=== PATIENT | male | born 1955 | race Caucasian/White ===

== ENCOUNTER 2019-08-25 07:10 | Outpatient (RCR) | payer OTHER, SELFPAY ==
--- NOTE | 2019-07-11 08:27 | WPDWOUNDNOTE ---
Wound Care Note Date/Time: 07/11/19 08:27 History: 1 week s/p Omnigraft application by Dr. Dueñas in the [facility] wound clinic on the medial aspect of the right hallux DFU. Wound history: I&D Right DFU and graft application (DOS: 06/01/19) Wound approximation: No Wound width: 0.4cm Wound length: 0.7cm Wound depth: 0.3cm Drainage: Scant serousanguinous fluid. Mild pseudomonas Surrounding tissue appearance: No redness/warmth. Mild Swelling. Tunneling: n/a Percentage granulation tissue: 100% red/pink wound bed. Treatment/Procedures: Dressing change/TCC Dressings: Regranex, Endoform, Vancomycin Powder and repeat TCC Assessment and Plan Assessment and plan (1) Ulcer of foot due to diabetes: Code(s): E11.621 - Type 2 diabetes mellitus with foot ulcer; L97.509 - Non-pressure chronic ulcer of other part of unspecified foot with unspecified severity Status: Acute Assessment and Plan: 5 weeks, 5 days s/p I&D and graft application of right DFU over the medial hallux. Ulcer today with improvement in dimensions 1 week s/p omnigraft application in the wound clinic by Dr. Dueñas. Ulcer today measures 0.4x0.7x0.3cm, 100% red/pink wound bed. Surrounding tissue with green drainage consistent with pseudomonas. Mild odor consistent with pseudomonas. No purulence. Omnigraft silicone layer removed today, tolerated well. Recommended repeat application of Regranex, Endoform and Vancomycin powder. Repeat TCC. Plan for 1 more week of TCC and possible transition to daily dressing changes at that time. Follow up in 1 week. Fracture/Casting/Strapping Pre Procedure Consent was obtained, Procedures/risks were explained, Questions were answered, Correct patient identified and Correct side and site confirmed Episode of Care Return Visit Casting Cast: Total Contact Leg Cast Modification and Status: Diabetic Application Exam of Affected Area: Color: Normal, Temp: Normal, Pulse: Normal, Blanching: Normal, Capillary Refill: Normal and Sensory Exam: Abnormal (neuropathic ) Swelling: Yes (mild ) and Tenderness: Yes (mild ) Skin Apperance: Open (Wound measures 0.4x0.7x0.3cm, 100% red/pink wound bed. ) Care: Alcohol Wipes Patient Tolerated Procedure Well: Yes Post Procedure Patient tolerated the procedure well?: Tolerated procedure well Comment: Follow up in 1 week.
--- NOTE | 2019-07-18 09:29 | WPDWOUNDNOTE ---
Wound Care Note Date/Time: 07/18/19 09:29 History: 2 weeks s/p omnigraft application to the medial aspect of the right hallux DFU. 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 Most recent surgical intervention on 06/01/19 (I&D right DFU/graft application) Wound approximation: No Wound width: 0.2 Wound length: 0.4 Wound depth: 0.4 Drainage: scant serousanguinous Surrounding tissue appearance: No erythema Tunneling: None Percentage granulation tissue: 100% red/pink wound bed Dressings: Transition out of TCC. See notes Assessment and Plan Assessment and plan (1) Ulcer of foot due to diabetes: Code(s): E11.621 - Type 2 diabetes mellitus with foot ulcer; L97.509 - Non-pressure chronic ulcer of other part of unspecified foot with unspecified severity Status: Acute Assessment and Plan: 6 weeks, 5 days s/p I&D and graft application of right DFU over the medial hallux. 2 weeks s/p omnigraft application by Dr. Dueñas in the [facility] wound clinic. Ulcer today with continued improvement in dimensions. Ulcer measures 0.4x0.2x0.4cm, 100% red/pink wound bed. Surrounding tissue without redness/warmth/swelling. Marked improvement in green drainage consistent with pseudomonas s/p application of vanc powder last week. No odor noted. Patient would like to trial OUT of TCC and into fracture boot. Discussed risks of possible worsening of dimensions and need for close monitoring and daily dressing changes, verbalized understanding. Recommended application of Regranex, Endoform and Mepilex foam daily. If worsening of dimensions per patient assessment, will arrange for follow up in 1 week for repeat TCC. If dimensions/appearance stable, continue daily dressing changes, fracture boot and follow up in 2 weeks. . Discussed signs/symptoms of infection to report to ED immediately. Discussed importance of proper pressure offloading, nutrition and diabetic medication compliance. Review of Systems Const Reports no additional constitutional complaints Eyes Denies change in vision ENT Denies tongue swelling Card Denies chest pain with activity Resp Denies cough GI Denies abdominal pain Musc Reports as per HPI Neuro Reports numbness Sean/Lymph Denies easy bleeding Exam Const Constitutional General: cooperative and well developed HENMT Head: normal to inspection Eyes Sclera: sclerae normal Resp Effort & Inspection: normal respiratory effort and no audible wheezes Cardio Rate: Yes regular rate Diabetic Foot Exam Date of last foot exam: 07/04/19 Visual inspection of feet performed: Yes Inspection: Yes foot deformity, Yes nail disorder and Yes ulceration ( Plantar right 1st metatarsal) Peripheral pulse exam performed: Yes Pulses: L dorsalis pedis pulse: normal, R dorsalis pedis pulse: normal, L posterior tibial pulse: diminished and R posterior tibial pulse: diminished Sensory exam performed: Yes Monofilament Exam: L 1st metatarsals: absent, L 3rd metatarsals: absent, L 5th metatarsals: absent, L great toe: absent, L 3rd toe: absent, L 5th toe: absent, L medial mid foot: decreased, L lateral mid-foot: decreased, L mid-heel: decreased, L mid-dorsum foot: decreased, R 1st metatarsals: absent, R 3rd metatarsals: absent, R 5th metatarsals: absent, R great toe: absent, R 3rd toe: absent, R 5th toe: absent, R medial mid foot: decreased, R lateral mid-foot: decreased, R mid-heel: decreased and R mid-dorsum foot: decreased Monofilament foot exam results: Left foot: abnormal and Right foot: abnormal Pinprick: L great toe: abnormal and R great toe: abnormal Diabetic foot care education: provided
--- NOTE | 2019-08-01 08:23 | WPDWOUNDNOTE ---
Wound Care Note Date/Time: 08/01/19 08:23 4 weeks s/p omnigraft application to the medial aspect of the right hallux DFU. Chronic right hallux DFU for which the patient has undergone multiple surgical debridements, grafting and total contact casting. Most recent surgical intervention on 06/01/19 (I&D right DFU/graft application) Wound approximation: Yes (completely closed ) Dressings: Continue Mepilex Foam Daily Continue Fracture boot Assessment and Plan Assessment and plan (1) Ulcer of foot due to diabetes: Qualifiers: Diabetic foot ulcer location: toe Diabetes mellitus type: type 2 Laterality: right Non-pressure ulcer stage: limited to breakdown of skin Qualified Code(s): E11.621 - Type 2 diabetes mellitus with foot ulcer; L97.511 - Non-pressure chronic ulcer of other part of right foot limited to breakdown of skin Code(s): E11.621 - Type 2 diabetes mellitus with foot ulcer; L97.509 - Non-pressure chronic ulcer of other part of unspecified foot with unspecified severity Status: Acute Assessment and Plan: 8 weeks, 5 days s/p I&D and graft application of right DFU over the medial hallux. 4 weeks s/p omnigraft application by Dr. Dueñas in the [facility] wound clinic. Ulcer now with complete closure with delicate tissue. Surrounding tissue without redness/warmth/swelling. Recommended continuation of Mepilex foam daily and cover dry. Continue fracture boot for additional pressure offloading. Plan to transition to custom orthotics/depth shoes in 2 weeks. Patient has had these previously fabricated. Discussed signs/symptoms of infection to report to ED immediately. Discussed importance of proper pressure offloading, nutrition and diabetic medication compliance. Exam Const Constitutional General: cooperative and well developed [facility] Head: normal to inspection Eyes Sclera: sclerae normal Resp Effort & Inspection: normal respiratory effort and no audible wheezes Cardio Rate: Yes regular rate Diabetic Foot Exam Date of last foot exam: 07/04/19 Visual inspection of feet performed: Yes Inspection: Yes foot deformity Deformity: pes planus and Yes ulceration (Plantar right 1st metatarsal- completely closed ) Peripheral pulse exam performed: Yes Pulses: L dorsalis pedis pulse: normal, R dorsalis pedis pulse: normal, L posterior tibial pulse: diminished and R posterior tibial pulse: diminished Sensory exam performed: Yes Monofilament Exam: L 1st metatarsals: absent, L 3rd metatarsals: absent, L 5th metatarsals: absent, L great toe: absent, L 3rd toe: absent, L 5th toe: absent, L medial mid foot: decreased, L lateral mid-foot: decreased, L mid-heel: decreased, L mid-dorsum foot: decreased, R 1st metatarsals: absent, R 3rd metatarsals: absent, R 5th metatarsals: absent, R great toe: absent, R 3rd toe: absent, R 5th toe: absent, R medial mid foot: decreased, R lateral mid-foot: decreased, R mid-heel: decreased and R mid-dorsum foot: decreased Monofilament foot exam results: Left foot: abnormal and Right foot: abnormal Pinprick: L great toe: abnormal and R great toe: abnormal Diabetic foot care education: provided Review of Systems Const Reports no additional constitutional complaints Eyes Denies change in vision ENT Denies tongue swelling Card Denies chest pain with activity Resp Denies cough GI Denies abdominal pain Musc Reports as per HPI Neuro Reports numbness Sean/Lymph Denies easy bleeding
--- NOTE | 2019-08-11 09:49 | PCWOUND ---
Patient called to cancel appointment for today. states had his Lynn look at the area and states it looks good. There is no redness, she notes a crusty scab and callus but no open wound. Patient will keep his scheduled appointment on Wednesday08/18/19.
--- NOTE | 2019-08-15 09:32 | P.PNWOUND_ITS ---
Wound Care Note Date/Time: 08/15/19 09:32 Chronic right hallux DFU for which the patient has undergone multiple surgical debridements, grafting and total contact casting. Most recent surgical intervention on 06/01/19 (I&D right DFU/graft application) Wound approximation: Yes (completely closed -callus formation debrided today) Dressings: Continue Mepilex Foam Daily Continue Fracture boot Assessment and Plan Assessment and plan (1) Ulcer of foot due to diabetes: Qualifiers: Diabetic foot ulcer location: toe Diabetes mellitus type: type 2 Late rality: right Non-pressure ulcer stage: limited to breakdown of skin Qualified Code(s): E11.621 - Type 2 diabetes mellitus with foot ulcer; L97.511 - Non- pressure chronic ulcer of other part of right foot limited to breakdown of skin Code(s): E11.621 - Type 2 diabetes mellitus with foot ulcer; L97.509 - Non-pressure chronic ulcer of other part of unspecified foot with unspecified severity Status: Acute Assessment and Plan: [facility] wound clinic follow up. Ulcer on the medial aspect of the hallux with large amount of callus formation requiring debridement, underlying ulcer remains completely. Surrounding tissue without redness/warmth/swelling. Recommended continuation of Mepilex foam cover dry with gauze x2 days and then transition into custom orthotics/depth shoes. Discussed signs/symptoms of infection to report to ED immediately. Discussed importance of proper pressure offloading, nutrition and diabetic medication compliance. Follow up in approximately 2 weeks. Exam Const Constitutional General: cooperative and well developed [facility] Head: normal to inspection Eyes Sclera: sclerae normal Resp Effort & Inspection: normal respiratory effort and no audible wheezes Cardio Rate: Yes regular rate Extrem Other: See wound assessment. Diabetic Foot Exam Date of last foot exam: 08/15/19 Visual inspection of feet performed: Yes Inspection: Yes foot deformity and Yes ulceration (Plantar right 1st metatarsal- completely closed ) Peripheral pulse exam performed: Yes Pulses: L dorsalis pedis pulse: normal, R dorsalis pedis pulse: normal, L posterior tibial pulse: diminished and R posterior tibial pulse: diminished Sensory exam performed: Yes Monofilament Exam: L 1st metatarsals: absent, L 3rd metatarsals: absent, L 5th metatarsals: absent, L great toe: absent, L 3rd toe: absent, L 5th toe: absent, L medial mid foot: decreased, L lateral mid-foot: decreased, L mid-heel: decreased, L mid-dorsum foot: decreased, R 1st metatarsals: absent, R 3rd metatarsals: absent, R 5th metatarsals: absent, R great toe: absent, R 3rd toe: absent, R 5th toe: absent, R medial mid foot: decreased, R lateral mid-foot: decreased, R mid-heel: decreased and R mid-dorsum foot: decreased Monofilament foot exam results: Left foot: abnormal and Right foot: abnormal Pinprick: L great toe: abnormal and R great toe: abnormal Diabetic foot care education: provided Review of Systems Const Reports no additional constitutional complaints Eyes Denies change in vision ENT Denies tongue swelling Card Denies chest pain with activity Resp Denies cough GI Denies abdominal pain Musc Reports as per HPI Neuro Reports numbness Sean/Lymph Denies easy bleeding
--- NOTE | 2019-08-25 09:11 | WPDWOUNDNOTE ---
Wound Care Note Date/Time: 08/25/19 09:11 Chronic right hallux DFU for which the patient has undergone multiple surgical debridements, grafting and total contact casting. Most recent surgical intervention on 06/01/19 (I&D right DFU/graft application) Wound approximation: Yes (completely closed) Dressings: Continue Mepilex Foam Daily, Custom Orthotics/Depth Shoes Assessment and Plan Assessment and plan (1) Ulcer of foot due to diabetes: Qualifiers: Diabetic foot ulcer location: toe Diabetes mellitus type: type 2 Laterality: right Non-pressure ulcer stage: limited to breakdown of skin Qualified Code(s): E11.621 - Type 2 diabetes mellitus with foot ulcer; L97.511 - Non-pressure chronic ulcer of other part of right foot limited to breakdown of skin Code(s): E11.621 - Type 2 diabetes mellitus with foot ulcer; L97.509 - Non-pressure chronic ulcer of other part of unspecified foot with unspecified severity Status: Acute Assessment and Plan: [facility] wound clinic follow up. Ulcer on the medial aspect of the hallux remains closed. Surrounding tissue without redness/warmth/swelling. Recommended continuation of Mepilex foam and custom orthotics/depth shoes. Discussed signs/symptoms of infection to report to ED immediately. Discussed importance of proper pressure offloading, nutrition and diabetic medication compliance. Follow up in 1 month. Exam Const Constitutional General: cooperative and well developed HENMT Head: normal to inspection Eyes Sclera: sclerae normal Resp Effort & Inspection: normal respiratory effort and no audible wheezes Cardio Rate: Yes regular rate Extrem Other: See wound assessment. Diabetic Foot Exam Date of last foot exam: 08/25/19 Visual inspection of feet performed: Yes Inspection: Yes foot deformity and Yes ulceration (Plantar right 1st metatarsal- completely closed ) Peripheral pulse exam performed: Yes Pulses: L dorsalis pedis pulse: normal, R dorsalis pedis pulse: normal, L posterior tibial pulse: diminished and R posterior tibial pulse: diminished Sensory exam performed: Yes Monofilament Exam: L 1st metatarsals: absent, L 3rd metatarsals: absent, L 5th metatarsals: absent, L great toe: absent, L 3rd toe: absent, L 5th toe: absent, L medial mid foot: decreased, L lateral mid-foot: decreased, L mid-heel: decreased, L mid-dorsum foot: decreased, R 1st metatarsals: absent, R 3rd metatarsals: absent, R 5th metatarsals: absent, R great toe: absent, R 3rd toe: absent, R 5th toe: absent, R medial mid foot: decreased, R lateral mid-foot: decreased, R mid-heel: decreased and R mid-dorsum foot: decreased Monofilament foot exam results: Left foot: abnormal and Right foot: abnormal Pinprick: L great toe: abnormal and R great toe: abnormal Diabetic foot care education: provided Review of Systems Const Reports no additional constitutional complaints Eyes Denies change in vision ENT Denies tongue swelling Card Denies chest pain with activity Resp Denies cough GI Denies abdominal pain Musc Reports as per HPI Neuro Reports numbness Sean/Lymph Denies easy bleeding
== END 2019-10-02 23:59 | disposition home or self-care (01) ==
LOC: ANHWOC 07:10
PROVIDERS: Visit Provider Orthopaedic Surgery
DX: E11.621 Type 2 diabetes mellitus with foot ulcer (principal); L97.519 Non-pressure chronic ulcer of other part of right foot with unspecified severity
CPT/HCPCS: 11042; 15275; 29445; 92593; 99212; Q4105; G0463; J3370

== ENCOUNTER 2019-11-13 20:56 | Inpatient (IN) | payer OTHER, SELFPAY ==
--- NOTE | ~2019-11-13 | XR_ITS ---
EXAMINATION: XR chest 2V DATE: 11/13/2019 21:53 INDICATION: Possible sepsis TECHNIQUE: AP and lateral views of the chest are obtained. COMPARISON: 11/22/2014 FINDINGS: The lungs are free of acute opacities. There is no pleural effusion or pneumothorax. The ca rdiomediastinal silhouette is normal. There is moderate thoracic spondylosis. IMPRESSION: 1. No acute cardiopulmonary abnormality. Reviewed, dictated and finalized at location A.
--- NOTE | ~2019-11-13 | XR_ITS ---
EXAMINATION: XR foot RT min 3V DATE: 11/13/2019 23:40 INDICATION: Right foot wound and ulceration TECHNIQUE: Dorsoplantar, lateral, and 2 oblique views of the right foot were obtained. COMPARISON: 10/08/2018 FINDINGS: Soft tissue swelling is seen at the plantar aspect of the first metatarsophalangeal joint. There is sclerosis and joint space narrowing of the first metatarsophalangeal joint as well as some e rosions of the joint space as well as an apparent erosion at the plantar aspect of the first metatars al. No definite soft tissue gas is identified. Dorsal and plantar calcaneal enthesophytes are noted. The remaining osseous structures are unremarkable. IMPRESSION: 1. Plantar soft tissue ulceration near the first metatarsophalangeal joint with possible associated o steomyelitis. Reviewed, dictated and finalized at location A. IMPRESSION: 1. Plantar soft tissue ulceration near the first metatarsophalangeal joint with possible associated osteomyelitis.
--- NOTE | ~2019-11-13 | US_ITS ---
EXAMINATION: US renal BI EXAM DATE: 11/14/2019 10:45 INDICATION: Kidney failure. TECHNIQUE: Multiple grayscale and Doppler images of the kidneys were obtained (by a technologist who performed the scan) and subsequently reviewed. There is no prior study for comparison. FINDINGS: Right kidney: There is normal contour and echogenicity. It measures 13.2 x 5.4 x 6.7 centimeters. T here are no focal renal lesions identified. There is no hydronephrosis. Left kidney: There is normal contour and echogenicity. It measures 13.6 x 5.9 x 6.9 centimeters. Th ere are no focal renal lesions identified. There is no hydronephrosis. Bladder unremarkable. Bilateral ureteral jets confirmed. IMPRESSION: 1. Sonographically unremarkable kidneys. Reviewed, dictated and finalized at location A.
[2019-11-13 20:59] VITALS: BP 89/44; PULSE 127; RESP 18; TEMP 37.6; O2SAT 97
[2019-11-13 21:10] VITALS: BP 80/43; PULSE 122; RESP 18; O2SAT 98
--- NOTE | 2019-11-13 21:15 | ECG_ITS ---
Measurements Intervals [place] Rate: 121 P: 77 SD: 186 QRS: -42 QRSD: 101 T: 21 QT: 314 QTc: 447 Interpretive Statements SINUS TACHYCARDIA LEFT AXIS DEVIATION POOR R WAVE PROGRESSION, ANTERIOR LEADS ABNORMAL ECG Electronically Signed On 11-14-2019 7:06:04 CDT by Clement Kimbrough D.O.
[2019-11-13 21:37] LABS: Basophils Absolute Auto 0.1 K/mm3 (0.0-0.1); Basophils Percent Auto 0.5 % (0.2-1.2); Eosinophils Percent Auto 0.3 % (0-4.4); Hematocrit 39.7 % (42.0-52.0); Hemoglobin 12.5 g/dL (14.0-18.0); Immature Granulocyte Absolute 0.09 K/mm3 (0.00-0.031); Immature Granulocyte Percent A 0.7 % (0-0.5); Lymphocytes Absolute Auto 1.05 K/mm3 (0.9-3.2); Lymphocytes Percent Auto 7.9 % (18.3-44.2); Mean Corpuscular HGB Conc 31.5 g/dl (32-36); Mean Corpuscular Hemoglobin 31.6 pg (26-34); Mean Corpuscular Volume 100.5 fl (80-100); Mean Platelet Volume 12.1 fl (7.4-10.4); Monocytes Absolute Auto 0.7 K/mm3 (0.1-0.6); Monocytes Percent Auto 4.9 % (2.6-8.5); Neutrophils Absolute Auto 11.4 K/mm3 (1.3-6.7); Neutrophils Percent Auto 85.7 % (45.5-73.1); Platelet Count Result 211 k/mm3 (150-375); Red Blood Count 3.95 M/mm3 (4.6-6.20); Red Cell Distribution Width 12.1 % (11.5-14.5); White Blood Count 13.3 K/mm3 (4.5-10.0)
[2019-11-13 21:46] LABS: INR 1.1; Prothrombin Time 13.4 Seconds (11.1-14.7)
[2019-11-13 21:47] LABS: Partial Thromboplastin Time 28.4 SECONDS (22.3-36.8)
--- NOTE | 2019-11-13 21:48 | ED.WOUNDLAC ---
HPI - Wound/Laceration General Chief Complaint: Wound/Laceration Stated Complaint: R toe wound Time Seen by Provider: 11/13/19 21:38 Source: patient Mode of arrival: ambulatory Limitations: no limitations History of Present Illness HPI narrative: Pt is a 64 y/o male who has a H/o DM and peripheral neuropathy that presents to the ED with c/o a wound to his rt foot that has worsened in the last week. Pt states that he has been getting treatment for his foot wound for a year by Dr. Dueñas. Pt states he has had multiple cleanings and skin grafts. Pt saw Dr. Dueñas on Wednesday and had his wound debrided. Pt reports fever, chills, sweats, and dizziness that started last night. Per spouse, she was changing the pt's dressing when she noticed drainage from the wound and surrounding erythema. Pt has been wearing a boot for the last week. Onset (ago): week(s) (1) Extremity Location: Right: foot Context: other (foot ulcer) Associated symptoms: fever and other (sweats, chills) Related Data Home Medications Medication Instructions Recorded Confirmed clopidogrel 75 mg PO DAILY 06/23/19 11/14/19 finasteride 5 mg PO DAILY 06/23/19 11/14/19 gabapentin 300 mg PO BID 06/23/19 11/14/19 lisinopril 40 mg PO DAILY 06/23/19 11/14/19 metformin 500 mg PO BID 06/23/19 11/14/19 rosuvastatin [Crestor] 5 mg PO DAILY 06/23/19 11/14/19 tamsulosin 0.4 mg PO DAILY 06/23/19 11/14/19 Humulin R U-500 (Conc) Insulin See Rx Instructions .ROUTE .COMPLEX 11/13/19 11/14/19 [id number] 1 ea PO BID 11/14/19 11/14/19 [Huy (with collagen)] fenofibrate 54 mg PO HS 11/14/19 11/14/19 Allergies Allergy/AdvReac Type Severity Reaction Status Date / Time No Known Allergies Allergy Verified 11/13/19 21:12 Review of Systems Review of Systems: All systems reviewed & are unremarkable except as noted in HPI and below Constitutional: Constitutional: Reports chills, Reports fever(s) and Reports other (sweats) Integumentary/Breasts: Skin/Breast: Reports skin ulcer (to rt foot) Neurologic: Reports dizziness PMFSH Past Medical History Medical History CAD (coronary artery disease) CVA (cerebral vascular accident) Degenerative joint disease of knee Diabetes mellitus with neurologic complication, with long-term current use of insulin High cholesterol HTN (hypertension) Left knee pain Sleep apnea TIA (transient ischemic attack) Ulcer of foot due to diabetes Vision abnormalities Weakness generalized Surgical History Surgical History H/O heart artery stent History of cardiac catheterization History of incision and drainage thigh abscess Status post left foot surgery Family History Family History Father Lung cancer Social History Social History Smoking packs per day: 2 Smoking cigarettes per day: 40.0 Years smoked: 20 Smoking pack-years: 40.00 Smoking status: Former smoker Second hand tobacco smoke exposure: No Smoking end date: 09/10/99 Alcohol intake: former Drinks per week: 1 Substance use: never Gender identity (if verbalized by the patient): Male Spiritual care concerns: No Agree to blood products: Yes Comments Pt's PCP is Dr. Lomeli and his orthopedic surgeon is Dr. Dueñas. Exam Narrative: Exam Narrative: GENERAL: Well-appearing, morbidly obese, and in no acute distress. HEAD: Normocephalic, atraumatic. ENT: Mucous membranes moist. CHEST: Clear to auscultation. No respiratory distress. HEART: Regular rate and rhythm. Normal peripheral pulses. ABDOMEN: Soft, nontender, nondistended. EXTREMITIES: Normal range of motion. 1+ edema. Right foot with pressure ulcer over the first MTP medial/plantar aspect with out drainage with surrounding erythema extending up to the midfoot with palpable warm
[2019-11-13 21:52] LABS: Alanine Aminotransferase 26 U/L (4-50); Albumin Level 3.8 g/dL (3.5-5.1); Alkaline Phosphatase 61 U/L (38-126); Aspartate Amino Transferase 25 U/L (17-59); Bilirubin,Total 0.8 mg/dL (0.2-1.3); Blood Urea Nitrogen 57 mg/dL (9-20); Calcium 9.3 mg/dL (8.4-10.2); Carbon Dioxide 19 mmol/L (22-30); Chloride 102 mmol/L (98-107); Estimated CRCL calculation 53 ml/min; Estimated Glomerular Filt Rate 34; Glucose 304 mg/dL (75-110); Potassium 5.3 mmol/L (3.4-5.0); Sodium 134 mmol/L (137-145)
[2019-11-13 21:59] LABS: Lactic Acid Reflex 3.1 mmol/L (0.7-2.1)
[2019-11-13 22:05] LABS: CRP 20.5 mg/dL (<1.0)
--- NOTE | 2019-11-13 22:58 | PC.NURSE ---
Called phlebotomy to draw blood cultures.
[2019-11-13] MEDS: SODIUM CHLORIDE 0.9% IV 1,000 ML 999 ML IV CONT (23:00)
[2019-11-13 23:36] VITALS: BP 146/65; PULSE 114; RESP 20; TEMP 37.3; O2SAT 95
[2019-11-14] VITALS (17 sets, daily range): BP systolic 103–142; BP diastolic 51–114; PULSE 50–110; RESP 18–24; TEMP 36.2–37.3; O2SAT 92–97; BMI 45.6
[2019-11-14 00:45] LABS: Reflex Lactic Acid Yes or No Add Lactic
--- NOTE | 2019-11-14 00:48 | PM.IMHP ---
H&P: HPI History of Present Illness Chief complaint: INFECTED PRESSURE ULCER,SEVERE SEPSIS,RENAL FAILUR Narrative: This is a 64 year old morbidly obese Diabetic male with a known history of a chronic right great toe wound over the past year and presented to the hospital [facility] with a complaint of worsening redness, swelling, chills, and generalized weakness. He mention that over the past few days he hasn't been feeling well and has noticed that he has been sleeping more than usual. He also noticed that his blood sugars that usually run in the 150-200 range are now in the 300-350 range. He states he just saw his orthopedic doctor, Dr. Goodwin who told him that his foot wound was doing well. He reports significant peripheral neuropathy and believes that he has been putting pressure on his wound when he ambulates. His last course of antibiotic therapy was 4 months ago. The patient was evaluated in the ER [facility] and found to be severely septic with fever, tachycardia, hypotension, leukocytosis, and an elevated lactic acid of 3.1. The patient was found to have what appears to be osteomyelitis of his right large toe on Xray [facility]. He has been started on wide spectrum antibiotics to cover for Osteomyelitis. On further questioning he denies any shortness of breath, cough, sore throat, ear pain, chest pain, palpitations, nausea, vomiting, abdominal pain, dysuria, hematuria, diarrhea, rectal bleeding or LE swelling. No other complaints. Review of Systems Review of Systems: All systems reviewed & are unremarkable except as noted in HPI and below PMFSH Past Medical History Medical History CAD (coronary artery disease) CVA (cerebral vascular accident) Degenerative joint disease of knee Diabetes mellitus with neurologic complication, with long-term current use of insulin High cholesterol HTN (hypertension) Left knee pain Sleep apnea TIA (transient ischemic attack) Ulcer of foot due to diabetes Vision abnormalities Weakness generalized Surgical History Surgical History H/O heart artery stent History of cardiac catheterization History of incision and drainage thigh abscess Status post left foot surgery Family History Family History Father Lung cancer Social History Social History Smoking packs per day: 2 Smoking cigarettes per day: 40.0 Years smoked: 20 Smoking pack-years: 40.00 Smoking status: Former smoker Second hand tobacco smoke exposure: No Smoking end date: 09/10/99 Alcohol intake: former Drinks per week: 1 Substance use: never Gender identity (if verbalized by the patient): Male Spiritual care concerns: No Agree to blood products: Yes Meds Home Medications and Allergies Home Medications Medication Instructions Recorded Confirmed Type clopidogrel 75 mg PO DAILY 06/23/19 06/23/19 History finasteride 5 mg PO DAILY 06/23/19 06/23/19 History gabapentin 300 mg PO BID 06/23/19 06/23/19 History lisinopril 40 mg PO DAILY 06/23/19 06/23/19 History metformin 500 mg PO BID 06/23/19 06/23/19 History rosuvastatin [Crestor] 5 mg PO DAILY 06/23/19 06/23/19 History tamsulosin 0.4 mg PO DAILY 06/23/19 06/23/19 History Humulin R U-500 (Conc) Insulin 11/13/19 History Allergies Allergy/AdvReac Type Severity Reaction Status Date / Time No Known Allergies Allergy Verified 11/13/19 21:12 Vital Signs Vital Signs - 24 hr 11/13/19 20:59 11/13/19 21:10 11/13/19 23:36 Temperature 37.6 C H 37.3 C Pulse Rate 127 H 122 H 114 H Respiratory Rate 18 18 20 Blood Pressure 89/44 L 80/43 L 146/65 H Pulse Oximetry 97 98 95 Exam Const: General: cooperative, alert, awake and ill appearing Nutritional Appearance: obese morbidly obese Orientation/consciousness: patient oriented x3 HE
[2019-11-14] MEDS: SODIUM CHLORIDE 0.9% IV 1,000 ML 125 ML IV CONT ×3 (01:08→17:31)
[2019-11-14 01:16] LABS: Glucose Point of Care 285 (65-105)
[2019-11-14 03:25] LABS: Basophils Absolute Auto 0.1 K/mm3 (0.0-0.1); Basophils Percent Auto 0.3 % (0.2-1.2); Eosinophils Percent Auto 0.1 % (0-4.4); Hematocrit 34.8 % (42.0-52.0); Immature Granulocyte Absolute 0.09 K/mm3 (0.00-0.031); Immature Granulocyte Percent A 0.5 % (0-0.5); Lymphocytes Absolute Auto 1.28 K/mm3 (0.9-3.2); Lymphocytes Percent Auto 7.7 % (18.3-44.2); Mean Corpuscular HGB Conc 31.6 g/dl (32-36); Mean Corpuscular Hemoglobin 31.7 pg (26-34); Mean Corpuscular Volume 100.3 fl (80-100); Mean Platelet Volume 11.8 fl (7.4-10.4); Monocytes Absolute Auto 1.1 K/mm3 (0.1-0.6); Monocytes Percent Auto 6.8 % (2.6-8.5); Neutrophils Percent Auto 84.6 % (45.5-73.1); Platelet Count Result 169 k/mm3 (150-375); Red Blood Count 3.47 M/mm3 (4.6-6.20); Red Cell Distribution Width 12.3 % (11.5-14.5); White Blood Count 16.6 K/mm3 (4.5-10.0)
[2019-11-14 03:47] LABS: Blood Urea Nitrogen 58 mg/dL (9-20); Calcium 8.3 mg/dL (8.4-10.2); Carbon Dioxide 23 mmol/L (22-30); Chloride 107 mmol/L (98-107); Estimated CRCL calculation 53 ml/min; Estimated Glomerular Filt Rate 34; Glucose 363 mg/dL (75-110); Potassium 5.7 mmol/L (3.4-5.0); Sodium 132 mmol/L (137-145)
[2019-11-14 03:48] LABS: Lactic Acid 1.5 mmol/L (0.7-2.1)
[2019-11-14 08:27] LABS: Glucose Point of Care 359 (65-105)
[2019-11-14] MEDS: SODIUM POLYSTYRENE SULFONONATE 15 GM/60 ML BTL PO ×2 (10:08→17:30)
[2019-11-14] MEDS: ENOXAPARIN 40 MG/0.4 ML SYRINGE SUB-Q (10:08)
[2019-11-14] MEDS: INSULIN ASPART (*BKC) 100 UNITS/ML 8 UNITS SUB-Q (10:08)
[2019-11-14] MEDS: SILVERGEL (ELTA) 45 ML 1 APPLIC TOPICAL ×2 (10:09→21:03)
[2019-11-14 12:12] LABS: Glucose Point of Care 414 (65-105)
--- NOTE | 2019-11-14 12:16 | PM.IMPN ---
Progress Note: A&P Assessment and Plan (1) Osteomyelitis of toe of right foot: Code(s): M86.9 - Osteomyelitis, unspecified Status: Acute Assessment and Plan: -----concerning for osteomyelitis with leukocytosis, tachycardia and hypotension. The patient has improved with the current antibiotics Zosyn and vancomycin. PARVEEN Valentine is going to send for a wound culture today. Patient has no feeling in that area. He has uncontrolled diabetes with his last A1c in September being 9.2. Will hold Plavix and continue Lovenox. Await or those recommendations. Consider MRI (2) Severe sepsis: Code(s): A41.9 - Sepsis, unspecified organism; R65.20 - Severe sepsis without septic shock Status: Acute Assessment and Plan: --------w/ elevated lactic acid, tachycardia, tachypnea, fever and leukocytosis. Source of sepsis appears to be osteomyelitis. Continue IV antibiotics. blood cultures x4 pending. Blood pressures are improving and no central line needed at this time. Patient is symptomatically better as well (3) Leukocytosis: Qualifiers: Leukocytosis type: unspecified Qualified Code(s): D72.829 - Elevated white blood cell count, unspecified Code(s): D72.829 - Elevated white blood cell count, unspecified Status: Acute Assessment and Plan: -----Secondary to sepsis and diabetic foot infection. Monitor CBCd. (4) Acute renal failure: Qualifiers: Acute renal failure type: unspecified Qualified Code(s): N17.9 - Acute kidney failure, unspecified Code(s): N17.9 - Acute kidney failure, unspecified Status: Acute Assessment and Plan: -----likely due to acute infection. Unchanged with fluids overnight so I will continue with fluids at this time. Creatinine 2.0. Has been up to 1.5 in the past. Renal ultrasound is normal. He is having some electrolyte abnormalities and Kayexalate was given today and he is also getting insulin. Will see how his kidney function changes with treatment of the infection. May consider nephrology consult if not improving. (5) Hyperkalemia: Code(s): E87.5 - Hyperkalemia Status: Acute Assessment and Plan: ------Secondary to acute renal failure and worse today. Kayexalate given. Will redraw a BMP later today. Telemetry with bigeminy but no abnormal T-waves. We will consider sodium bicarbonate, insulin + dextrose if necessary (6) Metabolic acidosis: Code(s): E87.2 - Acidosis Status: Acute Assessment and Plan: ------Secondary to sepsis. Monitor Acid-base status. Non gap acidosis. (7) Macrocytic anemia: Code(s): D53.9 - Nutritional anemia, unspecified Status: Chronic Assessment and Plan: -----No signs of acute blood loss. Monitor H/H, transfuse prn. (8) Diabetes mellitus with neurologic complication, with long-term current use of insulin: Qualifiers: Diabetes mellitus type: type 2 Diabetes mellitus complication detail: with polyneuropathy Qualified Code(s): E11.42 - Type 2 diabetes mellitus with diabetic polyneuropathy; Z79.4 - moth exterminator (current) use of insulin Code(s): E11.49 - Type 2 diabetes mellitus with other diabetic neurological complication; Z79.4 - moth exterminator (current) use of insulin Status: Chronic Assessment and Plan: -------patient utilizes insulin pump given by Dr. ta Colin. he does not appear to understand how this works too well. he says he uses U-500. I checked his pump and it looks like his settings are 0-5 1.45/hr. [id number] 1.4/hr. [id number] is 1.45/hr. He says he boluses himself 1 unit if he is greater than 250. Will stop insulin pump at this time. I talked to Kamari in pharmacy who recommended starting with 30u lantus and will also do SSI. Glucose has been running high, will adjust as needed. Continue Accuchecks, SSI Coverage, Hypoglycemic protocol. Hold metformin secondary to acute silva
[2019-11-14] MEDS: INSULIN ASPART (*BKC) 100 UNITS/ML 10 UNITS SUB-Q (12:38)
--- NOTE | 2019-11-14 12:51 | PM.CNOR ---
Assessment and Plan Assessment and plan (1) Infected pressure ulcer: Qualifiers: Pressure injury stage: unspecified pressure injury stage Qualified Code(s): L89.90 - Pressure ulcer of unspecified site, unspecified stage; L08.9 - Local infection of the skin and subcutaneous tissue, unspecified Code(s): L89.90 - Pressure ulcer of unspecified site, unspecified stage; L08.9 - Local infection of the skin and subcutaneous tissue, unspecified Status: Acute Assessment and Plan: 64-year-old gentleman known for previous right diabetic foot ulcer, previously being treated with dressing changes and fracture boot. Development of infection over the past 48 hours right foot. Ulcer is open and able to drain. No cultures done of the wound. Recommend wound culture and Gram stain. Agree with IV antibiotics. Complete offloading with nonweightbearing. Patient seen with wound care nurses and dressing care orders instituted. Will observe for improvement. May require further debridement. White count, CRP, blood pressure and laboratory results noted. (2) Leukocytosis: Qualifiers: Leukocytosis type: unspecified Qualified Code(s): D72.829 - Elevated white blood cell count, unspecified Code(s): D72.829 - Elevated white blood cell count, unspecified Status: Acute (3) Ulcer of foot due to diabetes: Qualifiers: Diabetic foot ulcer location: toe Diabetes mellitus type: type 2 Laterality: right Non-pressure ulcer stage: with muscle involvement without evidence of necrosis Qualified Code(s): E11.621 - Type 2 diabetes mellitus with foot ulcer; L97.515 - Non-pressure chronic ulcer of other part of right foot with muscle involvement without evidence of necrosis Code(s): E11.621 - Type 2 diabetes mellitus with foot ulcer; L97.509 - Non-pressure chronic ulcer of other part of unspecified foot with unspecified severity Status: Acute (4) Diabetes mellitus with neurologic complication, with long-term current use of insulin: Qualifiers: Diabetes mellitus type: type 2 Diabetes mellitus complication detail: with polyneuropathy Qualified Code(s): E11.42 - Type 2 diabetes mellitus with diabetic polyneuropathy; Z79.4 - assisted (current) use of insulin Code(s): E11.49 - Type 2 diabetes mellitus with other diabetic neurological complication; Z79.4 - lobsterman (current) use of insulin Status: Chronic History of Present Illness HPI Consult date: 11/14/19 Chief complaint: INFECTED PRESSURE ULCER,SEVERE SEPSIS,RENAL FAILUR Narrative: 64-year-old gentleman known to the wound clinic for right diabetic foot ulcer. Noted increased swelling pain and lightheadedness over the past 2 days. Has been placing a dressing over the right foot diabetic foot ulcer. Noticed drainage and increased redness surrounding this on November 11. No increase in pain secondary to neuropathy. Patient has been weight-bearing in a fracture boot. Noted lightheadedness when he would get up from seated position as well as fever. Review of Systems Constitutional: Constitutional: Reports fever(s) Eyes: Eyes: Denies blurry vision ENT: Reports Normal hearing present Cardiovascular: Cardiovascular: Denies chest pain and Denies dyspnea Respiratory: Respiratory: Denies dyspnea and Denies wheezing Gastrointestinal: Gastrointestinal: Denies abdominal pain Genitourinary: Genitourinary: Denies urinary urgency Musculoskeletal: Musculoskeletal: Reports as per HPI and Denies numbness Integumentary/Breasts: Skin/Breast: Reports as per HPI, Reports non-healing lesions (right foot) and Denies erythema Neurologic: Reports Normal hearing present, Denies behavioral changes, Denies confusion, Denies numbness and Denies convulsions Psychiatric: Psychiatric: Denies behavioral changes, Denies confusion and Denies hallucinations Endocrine: Endocrine: Denies heat intolerance Hematologic/Lymphatic: Hematologic/Lymphati
[2019-11-14 15:06] LABS: Blood Urea Nitrogen 54 mg/dL (9-20); Calcium 7.9 mg/dL (8.4-10.2); Carbon Dioxide 23 mmol/L (22-30); Chloride 107 mmol/L (98-107); Estimated CRCL calculation 59 ml/min; Estimated Glomerular Filt Rate 38; Glucose 427 mg/dL (75-110); Potassium 5.4 mmol/L (3.4-5.0); Sodium 132 mmol/L (137-145)
[2019-11-14 17:16] LABS: Glucose Point of Care 384 (65-105)
[2019-11-14] MEDS: INSULIN ASPART (*BKC) 100 UNITS/ML SUB-Q (17:30)
[2019-11-14 20:38] LABS: Glucose Point of Care 429 (65-105)
[2019-11-14] MEDS: GABAPENTIN 300 MG CAPSULE PO (21:03)
[2019-11-14] MEDS: INSULIN GLARGINE (*BKC) 100 UNITS/ML 30 UNITS SUB-Q (21:25)
[2019-11-14] MEDS: MELATONIN 5 MG TABLET PO (22:48)
[2019-11-15] VITALS (21 sets, daily range): BP systolic 97–153; BP diastolic 53–71; PULSE 47–102; RESP 16–20; TEMP 36–36.7; O2SAT 93–98; BMI 45.6
--- NOTE | 2019-11-15 | ECHO_ITS ---
Patient Info Name: Sunil De La Cruz Age: 64 years : 1955 Gender: Male Ht: 73 in Wt: 346 lbs BSA: 2.92 m2 HR: 90 bpm BP: 140 / 71 mmHg Technical Quality: Fair Exam Date: 11/15/2019 9:23 AM Exam Location: [facility] Pulmonary Exam Room: 213 Patient Status: Inpatient Admit Date: 11/13/2019 Staff Ordering Physician: Anali Vargas PA-C Apprentice Electrician: Sarah Morton RDCS Attending Provider: Anali Vargas PA-C Exam Type: CA echo dop color flow w con Study Info Indications - MRSA BACTEREMIA HX/O CAD CVA DM HTN TIA CATH STENT Complete two-dimensional, color flow and Doppler transthoracic echocardiogram is performed with contrast to opacify the left ventrical and to improve the deliniation of the left ventrical endocarial boarders. Contrast/Agitated Saline Contrast/Ag. Saline: Definity Amount: 1.00 ml Administered By: Kae Mccabe RN Existing IV Access: Yes IV Access Condition: patent with no signs of infiltration Summary 1. Left ventricular chamber dimension is normal. 2. Definity contrast administered improved wall motion interpretation. 3. Left ventricular systolic function is normal, estimated at 60-65%. 4. There is mildly increased left ventricular wall thickness. 5. The left ventricular diastolic function is abnormal. 6. E/e' 13 is mildly elevated. 7. Left atrial chamber dimension is mildly enlarged. 8. There is moderate aortic valve sclerosis. 9. There is mild mitral valve regurgitation. 10. No pulmonary hypertension, estimated pulmonary arterial systolic pressure is 32 mmHg. Left Ventricle Definity contrast administered improved wall motion interpretation. E/e' 13 is mildly elevated. Left ventricular chamber dimension is normal. Left ventricular systolic function is normal, estimated at 60-65%. There is mildly increased left ventricular wall thickness. The left ventricular diastolic function is abnormal. Right Ventricle Right ventricular chamber dimension is normal. Right ventricular systolic function is normal. Left Atria Left atrial chamber dimension is mildly enlarged. Right Atria Right atrial chamber dimension is normal. Aortic Valve The aortic valve is trileaflet. There is moderate aortic valve sclerosis. There is no aortic valve stenosis. Pulmonic Valve There is no pulmonic regurgitation. Mitral Valve There is no mitral valve stenosis. There is mild mitral valve regurgitation. Tricuspid Valve There is no tricuspid valve regurgitation. No pulmonary hypertension, estimated pulmonary arterial systolic pressure is 32 mmHg. Pericardium/Pleural There is no pericardial effusion. Inferior Vena Cava Normal inferior vena cava with >50% collapse upon inspiration consistent with normal right atrial pressure, 5 mmHg. Aorta The aortic root size at the sinus of Valsalva is normal. Left Ventricular Outflow Tract Name Value Normal LVOT 2D LVOT Diameter 2.10 cm LVOT Doppler LVOT Peak Gradient 4 mmHg LVOT Mean Gradient 3 mmHg LVOT VTI
[2019-11-15 05:17] LABS: Basophils Percent Auto 0.4 % (0.2-1.2); Eosinophils Absolute Auto 0.3 K/mm3 (0-0.3); Eosinophils Percent Auto 3.6 % (0-4.4); Hematocrit 32.5 % (42.0-52.0); Hemoglobin 10.3 g/dL (14.0-18.0); Immature Granulocyte Absolute 0.04 K/mm3 (0.00-0.031); Immature Granulocyte Percent A 0.5 % (0-0.5); Lymphocytes Absolute Auto 1.44 K/mm3 (0.9-3.2); Lymphocytes Percent Auto 17.1 % (18.3-44.2); Mean Corpuscular HGB Conc 31.7 g/dl (32-36); Mean Corpuscular Hemoglobin 32.1 pg (26-34); Mean Corpuscular Volume 101.2 fl (80-100); Mean Platelet Volume 12.2 fl (7.4-10.4); Monocytes Percent Auto 11.8 % (2.6-8.5); Neutrophils Absolute Auto 5.6 K/mm3 (1.3-6.7); Neutrophils Percent Auto 66.6 % (45.5-73.1); Platelet Count Result 156 k/mm3 (150-375); Red Blood Count 3.21 M/mm3 (4.6-6.20); Red Cell Distribution Width 12.2 % (11.5-14.5); White Blood Count 8.4 K/mm3 (4.5-10.0)
[2019-11-15] MEDS: SODIUM CHLORIDE 0.9% IV 1,000 ML 125 ML IV CONT ×3 (05:29→21:59)
[2019-11-15 05:39] LABS: Albumin Level 3.1 g/dL (3.5-5.1); Blood Urea Nitrogen 48 mg/dL (9-20); Carbon Dioxide 23 mmol/L (22-30); Chloride 109 mmol/L (98-107); Estimated CRCL calculation 62 ml/min; Estimated Glomerular Filt Rate 41; Glucose 363 mg/dL (75-110); Phosphorus 2.7 mg/dL (2.5-4.5); Sodium 134 mmol/L (137-145)
[2019-11-15] MEDS: INSULIN ASPART (*BKC) 100 UNITS/ML 6 UNITS SUB-Q ×2 (08:28→15:50)
[2019-11-15] MEDS: GABAPENTIN 300 MG CAPSULE PO ×2 (08:29→18:13)
[2019-11-15] MEDS: SILVERGEL (ELTA) 45 ML 1 APPLIC TOPICAL (08:29)
[2019-11-15] MEDS: ROSUVASTATIN 5 MG TABLET PO (08:30)
[2019-11-15] MEDS: TAMSULOSIN HCL 0.4 MG CAPSULE PO (08:30)
[2019-11-15] MEDS: FINASTERIDE 5 MG TABLET PO (08:30)
[2019-11-15 08:43] LABS: Glucose Point of Care 347 (65-105)
[2019-11-15] MEDS: PERFLUTREN LIPID MICROSPHERES 1.5 ML VIAL DILUTED TO 10 ML TOTAL VOLUME IV PUSH (11:02)
--- NOTE | 2019-11-15 11:06 | WPDANESEPPF ---
Anes - Initial Pre Proc Eval Procedure: Operation Date: 11/15/19 13:30 Proposed Procedures p Debridement Right Diabetic Foot Ulcer - Darinel Dueñas MD Date/Time: 11/15/19 11:06 Surgeon: Anali Vargas PA-C Pre Op Diagnosis: INFECTED PRESSURE ULCER,SEVERE SEPSIS,RENAL FAILUR Patient Data Age: 64 Gender: M Height: 6 ft 1 in Weight: 157 kg Last Vital Signs Temp 36.3 C L 11/15/19 08:00 Pulse 55 L 11/15/19 08:00 Resp 20 11/15/19 08:00 BP 153/63 H 11/15/19 08:00 Pulse Ox 95 11/15/19 08:00 Allergies Allergy/AdvReac Type Severity Reaction Status Date / Time No Known Allergies Allergy Verified 11/13/19 21:12 Home Medications Medication Instructions Recorded Confirmed Type clopidogrel 75 mg PO DAILY 06/23/19 11/14/19 History finasteride 5 mg PO DAILY 06/23/19 11/14/19 History gabapentin 300 mg PO BID 06/23/19 11/14/19 History lisinopril 40 mg PO DAILY 06/23/19 11/14/19 History metformin 500 mg PO BID 06/23/19 11/14/19 History rosuvastatin [Crestor] 5 mg PO DAILY 06/23/19 11/14/19 History tamsulosin 0.4 mg PO DAILY 06/23/19 11/14/19 History Humulin R U-500 (Conc) Insulin See Rx Instructions .ROUTE .COMPLEX 11/13/19 11/14/19 History [id number] 1 ea PO BID 11/14/19 11/14/19 History [Huy (with collagen)] fenofibrate 54 mg PO HS 11/14/19 11/14/19 History Laboratory Tests 11/14/19 11/14/19 11/14/19 12:01 14:48 14:48 WBC RBC Hgb Hct MCV MCH MCHC RDW Plt Count MPV Immature Gran % (Auto) Neut % (Auto) Lymph % (Auto) Potter % (Auto) Eos % (Auto) Baso % (Auto) Lymph # (Auto) Potter # (Auto) Eos # (Auto) Baso # (Auto) Abs Immat Gran (auto) Absolute Neuts (auto) Absolute Nucleated RBC Nucleated RBC % Sodium 132 mmol/L L mmol/L (137-145) Potassium 5.4 mmol/L H mmol/L (3.4-5.0) Chloride 107 mmol/L mmol/L (98-107) Carbon Dioxide 23 mmol/L mmol/L (22-30) BUN 54 mg/dL H mg/dL (9-20) Creatinine 1.80 mg/dL H mg/dL (0.7-1.3) Estim Creat Clear Calc 59 ml/min ml/min Estimated GFR 38 L (59 - ) Glucose 427 mg/dL H mg/dL (75-110) POC Capillary Glucose 414 mg/dl H mg/dl (65-105) Calcium 7.9 mg/dL L mg/dL (8.4-10.2) Phosphorus Magnesium 2.0 mg/dL mg/dL (1.6-2.3) Albumin 11/14/19 11/14/19 11/15/19 17:12 20:35 04:26 WBC 8.4 K/mm3 K/mm3 (4.5-10.0) RBC 3.21 M/mm3 L M/mm3 (4.6-6.20) Hgb 10.3 g/dL L g/dL (14.0-18.0) Hct 32.5 % L % (42.0-52.0) MCV 101.2 fl H fl (80-100) MCH 32.1 pg pg (26-34) MCHC 31.7 g/dl L g/dl (32-36) RDW 12.2 % % (11.5-14.5) Plt Count 156 k/mm3 k/mm3 (150-375) MPV 12.2 fl H fl (7.4-10.4) Immature Gran % (Auto) 0.5 % % (0-0.5) Neut % (Auto) 66.6 % % (45.5-73.1) Lymph % (Auto) 17.1 % L % (18.3-44.2) Potter % (Auto) 11.8 % H % (2.6-8.5) Eos % (Auto) 3.6 % % (0-4.4) Baso % (Auto) 0.4 % % (0.2-1.2) Lymph # (Auto) 1.44 K/mm3 K/mm3 (0.9-3.2) Potter # (Auto) 1.0 K/mm3 H K/mm3 (0.1-0.6) Eos # (Auto) 0.3 K/mm3 K/mm3 (0-0.3) Baso # (Auto) 0.0 K/mm3 K/mm3 (0.0-0.1) Abs Immat Gran (auto) 0.04 K/mm3 H K/mm3 (0.00-0.031) Absolute Neuts (auto) 5.6 K/mm3 K/mm3 (1.3-6.7) Absolute Nucleated RBC 0.0 K/mm3 K/mm3 (0.0-0.012) Nucleated RBC % 0.0 % % (0.0-0.2) Sodium Potassium Chloride Carbon Dioxide BUN
[2019-11-15] MEDS: LACTATED RINGERS 1,000 ML 30 ML IV CONT (11:15)
--- NOTE | 2019-11-15 11:34 | SUR.PREOP ---
pt presents to holding area w/20g iv cath in right ac/states he would like it moved for comfort/new placement per documentation
--- NOTE | 2019-11-15 11:36 | PM.PNORT ---
Progress Note: A&P Assessment and Plan (1) Infected pressure ulcer: Qualifiers: Pressure injury stage: unspecified pressure injury stage Qualified Code(s): L89.90 - Pressure ulcer of unspecified site, unspecified stage; L08.9 - Local infection of the skin and subcutaneous tissue, unspecified Code(s): L89.90 - Pressure ulcer of unspecified site, unspecified stage; L08.9 - Local infection of the skin and subcutaneous tissue, unspecified Status: Acute Assessment and Plan: Right infected diabetic foot ulcer with possible osteomyelitis. Blood cultures showing MRSA. Discussed with patient operative and non operative treatment options. Recommend debridement of right foot ulcer, irrigation for decontamination and possible excision of osteomyelitis. Will need to continue with wound care. Patient is currently on IV antibiotics. Risks, benefits and alternatives discussed with the patient. Questions were answered. Risks specifically of the surgery including anesthetic risks, infection, further spread of infection and poor healing as well as heart and lung risks discussed in detail. Patient would like to proceed. Plan: Excisional debridement of right infected diabetic foot ulcer, possible excision of osteomyelitis. Subjective Subjective Date/Time Seen: 11/15/19 11:36 No new complaints. Patient overall states feels a little bit better. Exam Const: General: healthy appearing; No in distress or confusion Orientation/consciousness: patient oriented x3 and No confusion HENMT: Head: normal to inspection, normocephalic and atraumatic Eyes: Conjunctivae: conjunctivae normal Sclera: sclerae normal Resp: Effort & Inspection: normal respiratory effort and no audible wheezes Neuro: General: patient oriented x3 and No confusion Extrem: Right upper extremity: normal to inspection Left upper extremity: normal to inspection Right lower extremity: normal to inspection, normal capillary refill, ankle and foot; no edema Left lower extremity: ankle and foot Other: Plantar ulcer right foot 1st metatarsal head 1.8 cm length, 0.5 cm with, 1.4 cm depth. Does not probe to bone. No undermining or tunneling. Purulence drainage noted. Erythema on the dorsum of the foot at the distal metatarsal level. No redness or swelling at the ankle/ leg, negative Homans. Psych: Affect: normal affect Objective Data Vital Signs Vital Signs: Vital Signs - 24 hr 11/14/19 12:00 11/14/19 14:00 11/14/19 16:00 Temperature 98.7 F 99.2 F Pulse Rate 103 H 99 102 H Respiratory Rate 20 20 Blood Pressure 124/58 L 127/67 Pulse Oximetry 95 93 11/14/19 18:00 11/14/19 20:00 11/14/19 22:00 Temperature 99.2 F Pulse Rate 103 H 106 H 98 Respiratory Rate 18 Blood Pressure 127/67 Pulse Oximetry 93 11/14/19 23:20 11/14/19 23:55 11/15/19 00:00 Temperature 98.7 F 98.7 F Pulse Rate 50 L 75 100 Respiratory Rate 18 18 18 Blood Pressure 142/55 H 142/55 H Pulse Oximetry 95 97 97 11/15/19 01:23 11/15/19 03:56 11/15/19 04:00 Temperature 98.0 F Pulse Rate 98 102 H 47 L Respiratory Rate 18 20 Blood Pressure 140/71 Pulse Oximetry 97 98 11/15/19 06:00 11/15/19 08:00 11/15/19 11:16 Temperature 97.4 F L 97.7 F Pulse Rate 94 55 L 89 Respiratory Rate 20 20 Blood Pressure 153/63 H 148/68 H Pulse Oximetry 95 93 Intake/Output Intake/Output: Intake & Output 11/12/19 11/13/19 11/14/19 11/15/19 23:59 23:59 23:59 23:59 Intake Total 3050 4900 1100 Output Total 600 Balance 3050 4900 500 Meds/Results Medications: Active Medications Generic Name Dose Route Start Last Admin Trade Name Freq PRN Reason Stop Dose Admin Acetaminophen 650 mg 11/13/19 23:30 Tylenol Tablet PO Q4H PRN Mild Pain (1-3) or Fever Dextrose 12.5 gm 11/14/19 00:52 Dextrose 50% Syringe IV PUSH PRN PRN Hypoglycemia Protocol Enoxaparin Sodium 40 mg 11/14/19 09:00 11/14/19 10:08 Lovenox
[2019-11-15 13:35] LABS: Glucose Point of Care 344 (65-105)
[2019-11-15 14:44] LABS: Glucose Point of Care 375 (65-105)
--- NOTE | 2019-11-15 14:44 | P.OP_ITS ---
Procedure Note - Detailed Date of procedure: 11/15/19 Pre-op diagnosis: INFECTED PRESSURE ULCER,SEVERE SEPSIS,RENAL FAILUR infected right diabetic foot ulcer, 1st metatarsal osteomyelitis Post-op diagnosis: same Procedure performed: excision osteomyelitis right foot, excisional debridement diabetic foot ulcer Description of procedure: indications: 64-year-old gentleman with insulin- dependent diabetes and peripheral neuropathy with chronic right diabetic foot ulcer. Ulcer became infected over the past several days. Radiographs concerning for osteomyelitis. Blood cultures with MRSA. Patient indicated for right foot debridement. What was done: Patient identified in the preoperative holding. Informed consent given. Operative extremity marked. Patient received intravenous antibiotics. Patient brought to the operating room where underwent general anesthetic by anesthesia team. Positioned supine on operating room table. Time-out performed confirming the patient, site of the surgery and the plan. Right foot prepped and draped usual sterile surgical fashion using a Betadine prep solution. Fifteen blade knife used to elongate the ulcer proximally and distally. Ulcer communicated with the plantar 1st metatarsal and metatarsophalangeal joint. Fibrous tissue remained removed from the joint with a rongeur. Rongeur used to remove the plantar and distal aspect of the 1st metatarsal which had signs of acute changes consistent with osteomyelitis. Wound thoroughly irrigated with antibiotic solution. A 15 blade knife and rongeur used to sharply excise and debride skin, subcutaneous tissue, fascia and muscle from the ulcer. Devitalized and infected tissue removed and passed off. Wound thoroughly irrigated with antibiotic solution. Approximately 2 cm in length 1 cm in with and 1.8 cm depth at the end of debridement. Wound culture taken after the irrigation. Wound then closed with 0 Prolene interrupted suture. Sterile dressings applied. Patient woken from anesthesia, extubated and taken to recovery room in stable condition. All sponge needle and instrument counts correct in the case. Anesthesia: GLMA Surgeon: Darinel Dueñas MD Egg Producer: retail event and sales assistant Estimated blood loss (mL): 5 Drains: No Packing: No Pathology: yes ( deep wound culture right foot) Complications: None Condition: stable Disposition: PACU
--- NOTE | 2019-11-15 14:52 | PCOTNOTE ---
OT evaluation attempted. Patient refusing therapy at this time stating he has just gotten out of surgery, is in a lot of pain, and would like to just rest for now. Will attempt OT evaluation at later time.
--- NOTE | 2019-11-15 14:52 | PCPTNOTE ---
Attempted to see patient for PT evaluation, patient states he just got out of surgery and in a lot of pain, will attempt evaluation tomorrow.
--- NOTE | 2019-11-15 14:59 | PM.IMPN ---
Progress Note: A&P Assessment and Plan (1) Osteomyelitis of toe of right foot: Code(s): M86.9 - Osteomyelitis, unspecified Status: Acute Assessment and Plan: -----concerning for osteomyelitis with leukocytosis, tachycardia and hypotension on admission. Postop day 0 of debridement. White blood cell count is now normal. Cultures came back MRSA in the wound and in his blood. Will continue with vancomycin. Dr. beltran consulted. He has uncontrolled diabetes with his last A1c in September being 9.2. We are working on his insulin regimen to improve his glucose as it is very important for tight glucose control. (2) Severe sepsis: Code(s): A41.9 - Sepsis, unspecified organism; R65.20 - Severe sepsis without septic shock Status: Acute Assessment and Plan: --------w/ elevated lactic acid, tachycardia, tachypnea, fever and leukocytosis which have resolved. Source of sepsis appears to be osteomyelitis. Continue vancomycin. See above (3) Leukocytosis: Qualifiers: Leukocytosis type: unspecified Qualified Code(s): D72.829 - Elevated white blood cell count, unspecified Code(s): D72.829 - Elevated white blood cell count, unspecified Status: Acute Assessment and Plan: -----Secondary to sepsis and diabetic foot infection. Now resolved. monitor CBCd. (4) Acute renal failure: Qualifiers: Acute renal failure type: unspecified Qualified Code(s): N17.9 - Acute kidney failure, unspecified Code(s): N17.9 - Acute kidney failure, unspecified Status: Acute Assessment and Plan: -----likely due to acute infection and improving with treatment. Continue fluids at this time. Creatinine 1.7. Has been up to 1.5 in the past. Renal ultrasound is normal. Potassium normal (5) Hyperkalemia: Code(s): E87.5 - Hyperkalemia Status: Acute Assessment and Plan: ------improved today and likely due to acute renal failure. Will assess tomorrow. Kayexalate given 11/13. (6) Metabolic acidosis: Code(s): E87.2 - Acidosis Status: Acute Assessment and Plan: ------Secondary to sepsis. Monitor Acid-base status. Non gap acidosis. (7) Macrocytic anemia: Code(s): D53.9 - Nutritional anemia, unspecified Status: Chronic Assessment and Plan: -----No signs of acute blood loss. Monitor H/H, transfuse prn. (8) Diabetes mellitus with neurologic complication, with long-term current use of insulin: Qualifiers: Diabetes mellitus type: type 2 Diabetes mellitus complication detail: with polyneuropathy Qualified Code(s): E11.42 - Type 2 diabetes mellitus with diabetic polyneuropathy; Z79.4 - care home (current) use of insulin Code(s): E11.49 - Type 2 diabetes mellitus with other diabetic neurological complication; Z79.4 - care home (current) use of insulin Status: Chronic Assessment and Plan: -------patient utilizes insulin pump given by Dr. ta Colin. he does not appear to understand how this works too well. he says he uses U-500. I checked his pump and it looks like his settings are 0-5 1.45/hr. 1842-0132 1.4/hr. 8051-1087 is 1.45/hr. He says he boluses himself 1 unit if he is greater than 250. Will stop insulin pump at this time. Spoke with Ambar thomas and will to 10 units scheduled with meals and sliding scale and increased Lantus to 40u. Will adjust as needed. continue Accuchecks, SSI Coverage, Hypoglycemic protocol. Hold metformin secondary to acute renal failure. (9) HTN (hypertension): Qualifiers: Hypertension type: unspecified Qualified Code(s): I10 - Essential (primary) hypertension Code(s): I10 - Essential (primary) hypertension Status: Chronic Assessment and Plan: -----last bp 109/64 but pt has significant lows when admitted. Will hold off on antihypertensives and if he continues to run a little high, will c
[2019-11-15] MEDS: ACETAMINOPHEN 325 MG TABLET 650 MG PO (15:49)
[2019-11-15] MEDS: DOCUSATE SODIUM 100 MG CAPSULE PO (18:13)
[2019-11-15 18:14] LABS: Glucose Point of Care 379 (65-105)
[2019-11-15] MEDS: INSULIN ASPART (*BKC) 100 UNITS/ML 10 UNITS SUB-Q (18:14)
[2019-11-15] MEDS: INSULIN ASPART (*BKC) 100 UNITS/ML SUB-Q (18:15)
[2019-11-15 20:10] LABS: Glucose Point of Care 355 (65-105)
[2019-11-15] MEDS: TOLNAFTATE 1% POWDER 45 GM BTL 1 APPLIC TOPICAL (21:59)
[2019-11-15] MEDS: MELATONIN 5 MG TABLET 10 MG PO (22:00)
[2019-11-15] MEDS: INSULIN GLARGINE (*BKC) 100 UNITS/ML 40 UNITS SUB-Q (22:00)
[2019-11-16] VITALS (14 sets, daily range): BP systolic 102–183; BP diastolic 46–68; PULSE 63–115; RESP 16–20; TEMP 36.6–37.2; O2SAT 90–96
--- NOTE | 2019-11-16 04:21 | ADMGEN ---
This patient, Sunil De La Cruz, was admitted to IMU Room 213-01 from ER 11/14/19 0100. Patient/family oriented to hospital policies and general routines including ID bracelet, bed and alarms, visiting hours, pain management, procedures, bathroom and other care routines, personal items, smoking policy, room service/diet, and visiting hours. Valuables list has been completed. Information on how to activate the Rapid Response Team has been discussed. Patient/Family are encouraged to report perceived risks to care and to ask questions if they do not understand what they are told or what they should do.
[2019-11-16 04:55] LABS: Hematocrit 32.8 % (42.0-52.0); Hemoglobin 10.4 g/dL (14.0-18.0); Mean Corpuscular HGB Conc 31.7 g/dl (32-36); Mean Corpuscular Volume 100.9 fl (80-100); Mean Platelet Volume 11.3 fl (7.4-10.4); Platelet Count Result 162 k/mm3 (150-375); Red Blood Count 3.25 M/mm3 (4.6-6.20); Red Cell Distribution Width 12.1 % (11.5-14.5); White Blood Count 8.1 K/mm3 (4.5-10.0)
[2019-11-16 05:25] LABS: Alanine Aminotransferase 38 U/L (4-50); Albumin Level 3.1 g/dL (3.5-5.1); Alkaline Phosphatase 52 U/L (38-126); Aspartate Amino Transferase 49 U/L (17-59); Bilirubin,Total 0.4 mg/dL (0.2-1.3); Blood Urea Nitrogen 35 mg/dL (9-20); Calcium 8.2 mg/dL (8.4-10.2); Carbon Dioxide 24 mmol/L (22-30); Chloride 109 mmol/L (98-107); Estimated CRCL calculation 87 ml/min; Estimated Glomerular Filt Rate > 60; Glucose 325 mg/dL (75-110); Potassium 4.7 mmol/L (3.4-5.0); Sodium 136 mmol/L (137-145)
[2019-11-16] MEDS: GABAPENTIN 300 MG CAPSULE PO ×2 (07:56→16:59)
[2019-11-16] MEDS: TAMSULOSIN HCL 0.4 MG CAPSULE PO (07:56)
[2019-11-16] MEDS: DOCUSATE SODIUM 100 MG CAPSULE PO ×2 (07:56→16:59)
[2019-11-16] MEDS: ROSUVASTATIN 5 MG TABLET PO (07:56)
[2019-11-16] MEDS: FINASTERIDE 5 MG TABLET PO (07:57)
[2019-11-16] MEDS: ENOXAPARIN 40 MG/0.4 ML SYRINGE SUB-Q (07:57)
[2019-11-16] MEDS: TOLNAFTATE 1% POWDER 45 GM BTL 1 APPLIC TOPICAL (08:00)
--- NOTE | 2019-11-16 08:27 | PM.IMPN ---
Progress Note: A&P Assessment and Plan (1) Osteomyelitis of toe of right foot: Code(s): M86.9 - Osteomyelitis, unspecified Status: Acute Assessment and Plan: -----concerning for osteomyelitis with leukocytosis, tachycardia and hypotension on admission. Postop day 1 of debridement. White blood cell count is now normal. Cultures came back MRSA in the wound and in his blood--still awaiting sensativities to cross over. Will continue with vancomycin. Dr. beltran consulted. He has uncontrolled diabetes with his last A1c in September being 9.2. We are working on his insulin regimen to improve his glucose. he is usually on U-500 so now he is on a consistent diet, he will require more insulin. (2) Severe sepsis: Code(s): A41.9 - Sepsis, unspecified organism; R65.20 - Severe sepsis without septic shock Status: Acute Assessment and Plan: --------w/ elevated lactic acid, tachycardia, tachypnea, fever and leukocytosis which have resolved. Source of sepsis appears to be osteomyelitis. Continue vancomycin. See above (3) Leukocytosis: Qualifiers: Leukocytosis type: unspecified Qualified Code(s): D72.829 - Elevated white blood cell count, unspecified Code(s): D72.829 - Elevated white blood cell count, unspecified Status: Acute Assessment and Plan: -----Secondary to sepsis and diabetic foot infection. Now resolved. monitor CBCd. (4) Acute renal failure: Qualifiers: Acute renal failure type: unspecified Qualified Code(s): N17.9 - Acute kidney failure, unspecified Code(s): N17.9 - Acute kidney failure, unspecified Status: Acute Assessment and Plan: -----likely due to acute infection and improving with treatment. Creatinine now normal and I will stop the fluids. Renal ultrasound is normal. Potassium normal (5) Hyperkalemia: Code(s): E87.5 - Hyperkalemia Status: Acute Assessment and Plan: ------Resolved and likely due to acute renal failure. Kayexalate given 11/13. (6) Metabolic acidosis: Code(s): E87.2 - Acidosis Status: Acute Assessment and Plan: ------Secondary to sepsis. Monitor Acid-base status. Non gap acidosis. (7) Macrocytic anemia: Code(s): D53.9 - Nutritional anemia, unspecified Status: Chronic Assessment and Plan: -----No signs of acute blood loss. Monitor H/H, transfuse prn. (8) Diabetes mellitus with neurologic complication, with long-term current use of insulin: Qualifiers: Diabetes mellitus type: type 2 Diabetes mellitus complication detail: with polyneuropathy Qualified Code(s): E11.42 - Type 2 diabetes mellitus with diabetic polyneuropathy; Z79.4 - [facility] (current) use of insulin Code(s): E11.49 - Type 2 diabetes mellitus with other diabetic neurological complication; Z79.4 - [facility] (current) use of insulin Status: Chronic Assessment and Plan: -------patient utilizes insulin pump given by Dr. ta Colin. He says he uses U-500. I checked his pump and it looks like his settings are 0-5 1.45/hr. 0382-6630 1.4/hr. 3048-9726 is 1.45/hr. He says he boluses himself 1 unit if he is greater than 250. Will stop insulin pump at this time. Spoke with Ambar thomas and called Dr. Colin this morning. Dr. Colin recommends lantus 25u in AM and 30u in PM. She also recommends a possible a 1:2 carb ratio and to increase his meal time insulin to up to 20u and go from there. Continue SSI as well. Will see how he does with regimen and will adjust from there. Hold metformin secondary to acute renal failure. (9) HTN (hypertension): Qualifiers: Hypertension type: unspecified Qualified Code(s): I10 - Essential (primary) hypertension Code(s): I10 - Essential (primary) hypertension Status: Chronic Assessment and Plan: -----last bp 147/62. but pt has significant lows when admitte
[2019-11-16 08:44] LABS: Glucose Point of Care 294 (65-105)
[2019-11-16 09:09] LABS: Vancomycin Trough 20.3 ug/mL (10.0-20.0)
[2019-11-16] MEDS: INSULIN GLARGINE (*BKC) 100 UNITS/ML 25 UNITS SUB-Q (09:16)
[2019-11-16] MEDS: INSULIN ASPART (*BKC) 100 UNITS/ML SUB-Q ×3 (09:16→17:00)
[2019-11-16] MEDS: lisinopriL 20 MG TABLET PO (09:18)
[2019-11-16] MEDS: INSULIN ASPART (*BKC) 100 UNITS/ML 16 UNITS SUB-Q ×3 (09:26→16:59)
--- NOTE | 2019-11-16 09:55 | WPDANESPN ---
Anes - Prog Note Post-Op Date/Time: 11/16/19 09:55 Cardiovascular status: normal Respiratory status: normal Airway patency: baseline Mental status: baseline Post-Op hydration status: normal Vital Signs: Last Vital Signs Temp 36.8 C 11/16/19 08:00 Pulse 115 H 11/16/19 09:53 Resp 16 11/16/19 08:00 BP 183/68 H 11/16/19 08:00 Pulse Ox 96 11/16/19 08:37 I/O: Intake & Output 11/15/19 11/16/19 11/16/19 23:59 07:59 15:59 Intake Total 2340 1050 585 Output Total 600 1200 Balance 1740 -150 585 Laboratory Tests 11/16/19 04:42 11/16/19 04:42 11/15/19 11/15/19 11/15/19 13:01 14:38 17:22 WBC RBC Hgb Hct MCV MCH MCHC RDW Plt Count MPV Sodium Potassium Chloride Carbon Dioxide BUN Creatinine Estim Creat Clear Calc Estimated GFR Glucose POC Capillary Glucose 344 H 375 H 379 H Calcium Total Bilirubin Direct Bilirubin AST ALT Alkaline Phosphatase Total Protein Albumin Vancomycin Trough 11/15/19 11/16/19 11/16/19 20:05 04:42 04:42 WBC 8.1 RBC 3.25 L Hgb 10.4 L Hct 32.8 L MCV 100.9 H MCH 32.0 MCHC 31.7 L RDW 12.1 Plt Count 162 MPV 11.3 H Sodium 136 L Potassium 4.7 Chloride 109 H Carbon Dioxide 24 BUN 35 H D Creatinine 1.20 Estim Creat Clear Calc 87 Estimated GFR > 60 Glucose 325 H POC Capillary Glucose 355 H Calcium 8.2 L Total Bilirubin 0.4 Direct Bilirubin 0.0 AST 49 ALT 38 Alkaline Phosphatase 52 Total Protein 6.0 L Albumin 3.1 L Vancomycin Trough 11/16/19 11/16/19 07:59 08:37 WBC RBC Hgb Hct MCV MCH MCHC RDW Plt Count MPV Sodium Potassium Chloride Carbon Dioxide BUN Creatinine Estim Creat Clear Calc Estimated GFR Glucose POC Capillary Glucose 294 H Calcium Total Bilirubin Direct Bilirubin AST ALT Alkaline Phosphatase Total Protein Albumin Vancomycin Trough 20.3 H Microbiology 11/13/19 23:26 Blood Blood Culture - Final Methicillin Resis Staph Aureus 11/13/19 21:28 Blood Blood Culture - Preliminary Methicillin Resis Staph Aureus Streptococcus mitis group 11/13/19 21:41 Blood Blood Culture - Preliminary Methicillin Resis Staph Aureus Streptococcus mitis group 11/13/19 23:26 Blood Blood Culture - Final Methicillin Resis Staph Aureus 11/14/19 13:38 Foot Right Anaerobic Culture - Preliminary Post-procedural complaints: none Patient Feedback: Patient satisfied with anesthetic care.
[2019-11-16] MEDS: SILVERGEL (ELTA) 45 ML 1 APPLIC TOPICAL (10:18)
--- NOTE | 2019-11-16 11:07 | PM.PNORT ---
Progress Note: A&P Assessment and Plan (1) Infected pressure ulcer: Qualifiers: Pressure injury stage: unspecified pressure injury stage Qualified Code(s): L89.90 - Pressure ulcer of unspecified site, unspecified stage; L08.9 - Local infection of the skin and subcutaneous tissue, unspecified Code(s): L89.90 - Pressure ulcer of unspecified site, unspecified stage; L08.9 - Local infection of the skin and subcutaneous tissue, unspecified Status: Acute (2) Osteomyelitis: Qualifiers: Laterality: right Osteomyelitis location: foot Osteomyelitis type: unspecified type Qualified Code(s): M86.9 - Osteomyelitis, unspecified Code(s): M86.9 - Osteomyelitis, unspecified Status: Acute Assessment and Plan: Postoperative day 1. Right foot debridement and excision of osteomyelitis. Wound closed. Dressing changed today. Will start silver gel and transfer. Reviewed with patient need for strict nonweightbearing. Plan for daily dressing changes and IV antibiotics. Repeat blood cultures pending. Subjective Subjective Date/Time Seen: 11/16/19 11:07 Patient feels better. Min rt foot pain Exam Const: General: healthy appearing; No in distress or confusion Orientation/consciousness: patient oriented x3 and No confusion HENMT: Head: normal to inspection, normocephalic and atraumatic Eyes: Conjunctivae: conjunctivae normal Sclera: sclerae normal Resp: Effort & Inspection: normal respiratory effort and no audible wheezes Neuro: General: patient oriented x3 and No confusion Extrem: Right upper extremity: normal to inspection Left upper extremity: normal to inspection Right lower extremity: normal to inspection, normal capillary refill, ankle and foot; no edema Left lower extremity: ankle and foot Other: Plantar ulcer right foot 1st metatarsal head closed. no purulence or drainage noted. Erythema on the dorsum of the foot improved. No redness or swelling at the ankle/ leg, negative Homans. Psych: Affect: normal affect Objective Data Vital Signs Vital Signs: Vital Signs - 24 hr 11/15/19 11:16 11/15/19 12:40 11/15/19 12:55 Temperature 97.7 F 97.1 F L Pulse Rate 89 91 92 Respiratory Rate 20 16 16 Blood Pressure 148/68 H 97/60 L 118/63 Pulse Oximetry 93 96 98 11/15/19 13:10 11/15/19 13:25 11/15/19 13:39 Temperature Pulse Rate 92 86 87 Respiratory Rate 16 16 16 Blood Pressure 118/61 124/63 109/64 Pulse Oximetry 94 96 95 11/15/19 14:00 11/15/19 15:05 11/15/19 16:00 Temperature 97.8 F Pulse Rate 88 89 95 Respiratory Rate 20 Blood Pressure 109/53 L Pulse Oximetry 98 11/15/19 17:00 11/15/19 18:00 11/15/19 20:00 Temperature 96.8 F L 98.1 F Pulse Rate 91 94 101 H Respiratory Rate 20 20 Blood Pressure 118/58 L 122/57 L Pulse Oximetry 93 93 11/15/19 22:00 11/15/19 23:51 11/16/19 00:00 Temperature 97.9 F Pulse Rate 98 91 97 Respiratory Rate 20 20 Blood Pressure 106/62 Pulse Oximetry 94 94 11/16/19 01:59 11/16/19 04:00 11/16/19 05:35 Temperature 97.9 F Pulse Rate 102 H 97 98 Respiratory Rate 20 Blood Pressure 147/62 H Pulse Oximetry 96 11/16/19 08:00 11/16/19 08:37 11/16/19 09:53 Temperature 98.2 F Pulse Rate 97 115 H Respiratory Rate 16 Blood Pressure 183/68 H Pulse Oximetry 90 96 Intake/Output Intake/Output: Intake & Output 11/13/19 11/14/19 11/15/19 11/16/19 23:59 23:59 23:59 23:59 Intake Total 3050 4900 5470 1635 Output Total 1500 1200 Balance 3050 4900 3970 435 Meds/Results Medications: Active Medications Generic Name Dose Route Start Last Admin Trade Name Freq PRN Reason Stop Dose Admin Acetaminophen 650 mg 11/13/19 23:30 11/15/19 15:49 Tylenol Tablet PO 650 mg Q4H PRN Administration Mild Pain (1-3) or Fever Dextrose 12.5 gm 11/14/19 00:52 Dextrose 50% Syringe IV PUSH PRN PRN Hypoglycemia Protocol Docusate Sodium 100 mg 11/15/19 1
--- NOTE | 2019-11-16 12:13 | WPDINFPN2 ---
Progress Note: A&P Assessment and Plan (1) MRSA bacteremia: Code(s): R78.81 - Bacteremia; B95.62 - Methicillin resistant Staphylococcus aureus infection as the cause of diseases classified elsewhere Status: Acute Assessment and Plan: MRSA bacteremia with infection, R foot source. POD #1 REC Vanc through 12/27/19. PICC. Subjective Date/time seen: 11/16/19 12:13 Objective Data Vital Signs Vital Signs: Vital Signs - 24 hr 11/15/19 12:40 11/15/19 12:55 11/15/19 13:10 Temperature 36.2 C L Pulse Rate 91 92 92 Respiratory Rate 16 16 16 Blood Pressure 97/60 L 118/63 118/61 Pulse Oximetry 96 98 94 11/15/19 13:25 11/15/19 13:39 11/15/19 14:00 Temperature Pulse Rate 86 87 88 Respiratory Rate 16 16 Blood Pressure 124/63 109/64 Pulse Oximetry 96 95 11/15/19 15:05 11/15/19 16:00 11/15/19 17:00 Temperature 36.6 C 36.0 C L Pulse Rate 89 95 91 Respiratory Rate 20 20 Blood Pressure 109/53 L 118/58 L Pulse Oximetry 98 93 11/15/19 18:00 11/15/19 20:00 11/15/19 22:00 Temperature 36.7 C Pulse Rate 94 101 H 98 Respiratory Rate 20 Blood Pressure 122/57 L Pulse Oximetry 93 11/15/19 23:51 11/16/19 00:00 11/16/19 01:59 Temperature 36.6 C Pulse Rate 91 97 102 H Respiratory Rate 20 20 Blood Pressure 106/62 Pulse Oximetry 94 94 11/16/19 04:00 11/16/19 05:35 11/16/19 08:00 Temperature 36.6 C 36.8 C Pulse Rate 97 98 97 Respiratory Rate 20 16 Blood Pressure 147/62 H 183/68 H Pulse Oximetry 96 90 11/16/19 08:37 11/16/19 09:53 11/16/19 12:00 Temperature Pulse Rate 115 H 96 Respiratory Rate Blood Pressure Pulse Oximetry 96 Intake/Output Intake/Output: Intake & Output 11/13/19 11/14/19 11/15/19 11/16/19 23:59 23:59 23:59 23:59 Intake Total 3050 4900 5470 1635 Output Total 1500 1200 Balance 3050 4900 3970 435 Meds/Results Medications: Active Medications Generic Name Dose Route Start Last Admin Trade Name Freq PRN Reason Stop Dose Admin Acetaminophen 650 mg 11/13/19 23:30 11/15/19 15:49 Tylenol Tablet PO 650 mg Q4H PRN Administration Mild Pain (1-3) or Fever Dextrose 12.5 gm 11/14/19 00:52 Dextrose 50% Syringe IV PUSH PRN PRN Hypoglycemia Protocol Docusate Sodium 100 mg 11/15/19 17:00 11/16/19 07:56 Colace Capsule PO 100 mg BID SARKIS Administration Enoxaparin Sodium 40 mg 11/14/19 09:00 11/16/19 07:57 Lovenox SUB-Q 40 mg DAILY SARKIS Administration Finasteride 5 mg 11/15/19 09:00 11/16/19 07:57 Proscar PO 5 mg DAILY SARKIS Administration Gabapentin 300 mg 11/14/19 17:00 11/16/19 07:56 Neurontin PO 300 mg BID SARKIS Administration Glucagon 1 mg 11/14/19 00:52 Glucagon For Inj IM PRN PRN Hypoglycemia Protocol Glucose 15 gm 11/14/19 00:52 Glutose 15 PO PRN PRN Hypoglycemia Protocol Dextrose 1,000 mls @ 100 mls/hr 11/14/19 00:52 Dextrose 5% 1,000 Ml IVPB PRN PRN Hypoglycemia Protocol Vancomycin HCl 2,000 mg in 500 mls @ 250 mls/hr 11/15/19 09:00 11/16/19 10:09 Vancomycin 2,000 Mg/D5w 500 Ml IVPB 250 mls/hr Q12H SARKIS Administration Insulin Aspart 2 - 5 units 11/15/19 17:00 11/16/19 09:16 Novolog SUB-Q 3 units TIDWM SARKIS Administration Protocol Insulin Aspart 16 units 11/16/19 08:43 Novolog SUB-Q TIDWM SARKIS Insulin Glargine 25 units 11/16/19 09:00 11/16/19 09:16 Lantus SUB-Q 25 units QAM SARKIS Administration Insulin Glargine 35 units 11/16/19 21:00 Lantus SUB-Q HS SARKIS Lidocaine HCl 5 ml 11/16/19 12:09 Xylocaine 1% Local Inj INFILTRATE 11/16/19 12:10 ONCE ONE Lisinopril 20 mg 11/16/19 09:00 11/16/19 09:18 Prinivil PO 20 mg QAM SARKIS Administration Magnesium Hydroxide 30 ml 11/15/19 14:20 Milk Of Magnesia PO BID PRN Constipation Melatonin 10 mg 11/15/19 05:47 11/15/19 22:00 Melatonin
[2019-11-16 12:38] LABS: Glucose Point of Care 395 (65-105)
[2019-11-16] MEDS: LIDOCAINE HCL 1% PF INJ 5 ML VIAL INFILTRATE (13:45)
--- NOTE | 2019-11-16 14:19 | CONS_ITS ---
DATE OF CONSULTATION: 11/16/2019 REASON FOR CONSULTATION: Bacteremia. HISTORY OF PRESENT ILLNESS: The patient is a 64-year-old male known to me from previously. He has longstanding diabetes mellitus and chronic ulcer of the right first toe. He underwent debridement of the ulcer approximately 4 weeks before admission. He presented to the emergency room on November 12 with worsened foot swelling, redness over the medial foot, generalized weakness, and hyperglycemia. Here, he was febrile and was admitted. He has been given piperacillin and vancomycin. Consultation requested. He was taken to the operating room yesterday where he underwent excision of osteomyelitis of the right foot and debridement of the diabetic foot ulcer, all by Dr. Dueñas. Operative findings included plantar and distal 1st metatarsal acute changes suggestive of osteomyelitis. Now postop. He has had no further fever, chills, or sweats. The edema in the foot has improved. Accu-Cheks also improved. ALLERGIES: NONE KNOWN. PRESENT MEDICATIONS: Above antibiotics. No immunosuppressants. HABITS: Ex-smoker 10 years ago. Social drinker. PAST MEDICAL HISTORY: In addition to the above, CAD, previous stroke, DJD, peripheral neuropathy, hyperlipidemia, hypertension, sleep apnea, coronary stents, thigh abscess, previous left foot surgery. REVIEW OF SYSTEMS: Hyperglycemia, otherwise endocrine, musculoskeletal, skin, constitutional, GI, and respiratory negative. FAMILY HISTORY: Not pertinent to his present illness. SOCIAL HISTORY: See record. PHYSICAL EXAMINATION: GENERAL: This is a middle-aged male, who appears actual age. No acute distress. VITAL SIGNS: Initial temperature was 37.6, has been afebrile since, 102/63, 94, 17. SKIN: No generalized rashes. EENT: The conjunctivae appear normal. LUNGS: Clear to auscultation. CARDIAC: Regular rate and rhythm. No murmurs or gallops. ABDOMEN: Obese, nontender. No mass. No organomegaly. EXTREMITIES: Right foot is dressed. No proximal erythema. He has 1+ pedal edema, it is pitting. Toe appears well perfused, all on the right side. LABORATORY DATA: Intraoperative wound culture pending. Blood cultures on admission 2/2 sets, MRSA, repeated 2 hours later, same result. From preoperative, a wound swab has also grown Staph aureus to be identified further. His original 2 blood cultures also grew Strep mitis. His initial white count 13.3 up to 16.6 the following day, now normal at 8.1, hemoglobin 10.4, which is stable. Platelets are 162. No differential done today. Previously was normal. Has mild hyponatremia. BUN 35, creatinine 1.2 down from 2. His glucose 325. Hemoglobin A1c in September was 9.2%. Liver function tests normal except for an albumin 3.1. RADIOLOGY: Plain films of the foot showed a soft tissue ulceration with possible underlying osteomyelitis at the plantar aspect of the 1st metatarsal. ASSESSMENT: 1. Methicillin-resistant Staphylococcus aureus and Streptococcus mitis bacteremia due to right foot infection, now postop day 1, excision and drainage and debridement. Now stable. 2. Diabetes mellitus, not optimally controlled. 3. Peripheral neuropathy. RECOMMENDATIONS: 1. Continue vancomycin 41 days more through December 26, target trough 15-20. 2. Discussed with him that oral antibiotics would be suboptimal in treating this infection. 3. Glycemic control. 4. PICC and discharge planning. He can follow in the office. BROOKE ASHFORD M.D. PEDIATRIC RADIOLOGIST PEDIATRIC RADIOLOGIST D I MT: Vamsi
--- NOTE | 2019-11-16 14:21 | PCPTNOTE ---
The PT treatment was unable to be completed this PM due to pt refusal. Will continue per Plan of Care frequency and duration.
--- NOTE | 2019-11-16 14:40 | PCCDE ---
attempted f/up but pt just had PICC line placed and requested f/up tomorrow. Noted PA is working with endo to adjust insulin.
[2019-11-16 17:17] LABS: Glucose Point of Care 309 (65-105)
[2019-11-16] MEDS: MELATONIN 5 MG TABLET 10 MG PO (20:36)
[2019-11-16] MEDS: INSULIN GLARGINE (*BKC) 100 UNITS/ML 35 UNITS SUB-Q (20:37)
[2019-11-16 21:24] LABS: Glucose Point of Care 377 (65-105)
[2019-11-17] VITALS: BP 128/67; PULSE 95; PULSE 98; RESP 18; TEMP 37.1; O2SAT 91; O2SAT 93
[2019-11-17 02:00] VITALS: PULSE 98
[2019-11-17 04:00] VITALS: BP 153/98; PULSE 89; PULSE 93; RESP 18; TEMP 36.9; O2SAT 91
[2019-11-17 04:15] LABS: Hematocrit 34.3 % (42.0-52.0); Hemoglobin 10.7 g/dL (14.0-18.0); Mean Corpuscular HGB Conc 31.2 g/dl (32-36); Mean Corpuscular Hemoglobin 31.5 pg (26-34); Mean Corpuscular Volume 100.9 fl (80-100); Mean Platelet Volume 11.1 fl (7.4-10.4); Platelet Count Result 183 k/mm3 (150-375); Red Cell Distribution Width 12.1 % (11.5-14.5); White Blood Count 8.1 K/mm3 (4.5-10.0)
[2019-11-17 05:34] VITALS: PULSE 94
--- NOTE | 2019-11-17 07:15 | PCOTNOTE ---
Attempted to see Patient at this time. Patient declined stating, not now, maybe later . Will try back again at a later time.
[2019-11-17 08:00] VITALS: BP 151/89; PULSE 92; RESP 18; TEMP 36.6; O2SAT 91
[2019-11-17 09:00] LABS: Glucose Point of Care 296 (65-105)
--- NOTE | 2019-11-17 10:03 | PM.PNORT ---
Progress Note: A&P Assessment and Plan (1) Infected pressure ulcer: Qualifiers: Pressure injury stage: unspecified pressure injury stage Qualified Code(s): L89.90 - Pressure ulcer of unspecified site, unspecified stage; L08.9 - Local infection of the skin and subcutaneous tissue, unspecified Code(s): L89.90 - Pressure ulcer of unspecified site, unspecified stage; L08.9 - Local infection of the skin and subcutaneous tissue, unspecified Status: Acute Assessment and Plan: postoperative day 2. Right foot debridement. Wound stable. Dressing changed. Appreciate Infectious Disease. Plan for long-term IV vancomycin. Will need total contact casting prior to discharge for offloading. We can then arrange follow-up in the [facility]. (2) Osteomyelitis: Qualifiers: Laterality: right Osteomyelitis location: foot Osteomyelitis type: unspecified type Qualified Code(s): M86.9 - Osteomyelitis, unspecified Code(s): M86.9 - Osteomyelitis, unspecified Status: Acute Subjective Subjective Date/Time Seen: 11/17/19 10:03 No new complaints. Patient denies fever or chills. Eating without difficulty. Exam Const: General: healthy appearing; No in distress or confusion Orientation/consciousness: patient oriented x3 and No confusion HENMT: Head: normal to inspection, normocephalic and atraumatic Eyes: Conjunctivae: conjunctivae normal Sclera: sclerae normal Resp: Effort & Inspection: normal respiratory effort and no audible wheezes Neuro: General: patient oriented x3 and No confusion Extrem: Right upper extremity: normal to inspection Left upper extremity: normal to inspection Right lower extremity: normal to inspection, normal capillary refill, ankle and foot; no edema Left lower extremity: ankle and foot Other: Plantar ulcer right foot 1st metatarsal head closed. Mild serous drainage noted. Erythema on the dorsum of the foot improved. No redness or swelling at the ankle/ leg, negative Homans. Psych: Affect: normal affect Objective Data Vital Signs Vital Signs: Vital Signs - 24 hr 11/16/19 12:00 11/16/19 14:00 11/16/19 16:00 Temperature 98.1 F 99.0 F Pulse Rate 94 92 94 Respiratory Rate 17 19 Blood Pressure 102/63 116/46 L Pulse Oximetry 92 92 11/16/19 17:54 11/16/19 19:37 11/16/19 20:00 Temperature 98.3 F Pulse Rate 93 96 96 Respiratory Rate 18 18 Blood Pressure 119/62 Pulse Oximetry 91 91 11/16/19 22:00 11/17/19 00:00 11/17/19 02:00 Temperature 98.7 F Pulse Rate 96 95 98 Respiratory Rate 18 Blood Pressure 128/67 Pulse Oximetry 93 11/17/19 04:00 11/17/19 05:34 11/17/19 08:00 Temperature 98.4 F 98 F Pulse Rate 93 94 92 Respiratory Rate 18 18 Blood Pressure 153/98 H 151/89 H Pulse Oximetry 91 91 Intake/Output Intake/Output: Intake & Output 11/14/19 11/15/19 11/16/19 11/17/19 23:59 23:59 23:59 23:59 Intake Total 4900 5470 4365 900 Output Total 1500 2700 1500 Balance 4900 3970 1665 -600 Meds/Results Medications: Active Medications Generic Name Dose Route Start Last Admin Trade Name Freq PRN Reason Stop Dose Admin Acetaminophen 650 mg 11/13/19 23:30 11/15/19 15:49 Tylenol Tablet PO 650 mg Q4H PRN Administration Mild Pain (1-3) or Fever Dextrose 12.5 gm 11/14/19 00:52 Dextrose 50% Syringe IV PUSH PRN PRN Hypoglycemia Protocol Docusate Sodium 100 mg 11/15/19 17:00 11/16/19 16:59 Colace Capsule PO 100 mg BID SARKIS Administration Enoxaparin Sodium 40 mg 11/14/19 09:00 11/16/19 07:57 Lovenox SUB-Q 40 mg DAILY SARKIS Administration Finasteride 5 mg 11/15/19 09:00 11/16/19 07:57 Proscar PO 5 mg DAILY SARKIS Administration Gabapentin 300 mg 11/14/19 17:00 11/16/19 16:59 Neurontin PO 300 mg BID SARKIS Administration Glucagon 1 mg 11/14/19 00:52 Glucagon For Inj IM PRN PRN Hypoglycemia Protocol Glucose 15 gm
[2019-11-17] MEDS: lisinopriL 20 MG TABLET PO (10:15)
[2019-11-17] MEDS: ROSUVASTATIN 5 MG TABLET PO (10:15)
[2019-11-17] MEDS: TAMSULOSIN HCL 0.4 MG CAPSULE PO (10:15)
[2019-11-17] MEDS: GABAPENTIN 300 MG CAPSULE PO (10:15)
[2019-11-17] MEDS: DOCUSATE SODIUM 100 MG CAPSULE PO (10:15)
[2019-11-17] MEDS: ENOXAPARIN 40 MG/0.4 ML SYRINGE SUB-Q (10:16)
[2019-11-17] MEDS: INSULIN ASPART (*BKC) 100 UNITS/ML SUB-Q (10:16)
[2019-11-17] MEDS: FINASTERIDE 5 MG TABLET PO (10:16)
[2019-11-17] MEDS: INSULIN ASPART (*BKC) 100 UNITS/ML 16 UNITS SUB-Q (10:17)
[2019-11-17] MEDS: INSULIN GLARGINE (*BKC) 100 UNITS/ML 25 UNITS SUB-Q (10:17)
[2019-11-17] MEDS: TOLNAFTATE 1% POWDER 45 GM BTL 1 APPLIC TOPICAL (10:18)
[2019-11-17] MEDS: SILVERGEL (ELTA) 45 ML 1 APPLIC TOPICAL (10:18)
--- NOTE | 2019-11-17 13:43 | PM.DS ---
DS: Diagnosis Admitting Diagnosis Admitting Diagnosis: Osteomyelitis, unspecified Discharge Diagnosis (1) Osteomyelitis of toe of right foot: Code(s): M86.9 - Osteomyelitis, unspecified Status: Acute (2) Severe sepsis: Code(s): A41.9 - Sepsis, unspecified organism; R65.20 - Severe sepsis without septic shock Status: Acute (3) Leukocytosis: Qualifiers: Leukocytosis type: unspecified Qualified Code(s): D72.829 - Elevated white blood cell count, unspecified Code(s): D72.829 - Elevated white blood cell count, unspecified Status: Acute (4) Acute renal failure: Qualifiers: Acute renal failure type: unspecified Qualified Code(s): N17.9 - Acute kidney failure, unspecified Code(s): N17.9 - Acute kidney failure, unspecified Status: Acute (5) Hyperkalemia: Code(s): E87.5 - Hyperkalemia Status: Acute (6) Metabolic acidosis: Code(s): E87.2 - Acidosis Status: Acute (7) Macrocytic anemia: Code(s): D53.9 - Nutritional anemia, unspecified Status: Chronic (8) Diabetes mellitus with neurologic complication, with long-term current use of insulin: Qualifiers: Diabetes mellitus type: type 2 Diabetes mellitus complication detail: with polyneuropathy Qualified Code(s): E11.42 - Type 2 diabetes mellitus with diabetic polyneuropathy; Z79.4 - skilled nursing (current) use of insulin Code(s): E11.49 - Type 2 diabetes mellitus with other diabetic neurological complication; Z79.4 - skilled nursing (current) use of insulin Status: Chronic (9) HTN (hypertension): Qualifiers: Hypertension type: unspecified Qualified Code(s): I10 - Essential (primary) hypertension Code(s): I10 - Essential (primary) hypertension Status: Chronic (10) Hyperlipidemia: Code(s): E78.5 - Hyperlipidemia, unspecified Status: Acute (11) MRSA bacteremia: Code(s): R78.81 - Bacteremia; B95.62 - Methicillin resistant Staphylococcus aureus infection as the cause of diseases classified elsewhere Status: Acute DS: Summary Hospital Course Reason for hospitalization: Right foot wound Hospital Course: Patient is a 64-year-old male who presented emergency room for right foot wound with drainage, dizziness, fevers and chills. Patient's vitals in the ER were temperature 99.7, pulse 127, respiratory rate 18, blood pressure 89/44, pulse ox 97 on room air. White blood cell count initially 16.6, hemoglobin 11.0, hematocrit 34.8, platelets 169. Sodium 132, potassium 5.4, chloride 107, carbon dioxide 23, BUN 54, creatinine 1.8, glucose 427. Chest x-ray was negative. Foot x-ray showed plantar soft tissue ulceration near the 1st metatarsal phalangeal joint with possible associated osteomyelitis. Patient was started on Zosyn and vancomycin and was admitted to the hospitalist service. Patient's creatinine improved with treatment of the infection and was normal the day of discharge as was his potassium. His wound culture grew MRSA as well as his blood cultures. His Zosyn was stopped and his vancomycin was continued. He went to the OR for debridement on 11/15/2019. He battled with high blood glucose throughout his stay and I was able to talk to his plant tech make an would and she can be suggestions on insulin regimen why he is in the hospital. 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 The day of discharge he was placed back on his insulin pump and resume routine glucose monitoring. Infectious Disease saw the patient and suggested vancomycin Through December 27, 2019 and a PICC line was placed. He was set up with home health and his is going to help do the antibiotics at home. Dr. beltran is going to follow the troughs and adjust as needed. The IV official.fm is aware this. Since his acute kidney injury had improved, he was restarted on his hypertension medication. I have asked that he gets a BMP in 1 week to check his kidney statu
--- NOTE | 2019-11-17 14:43 | WPDPN ---
Progress Note: A&P Assessment and Plan (1) MRSA bacteremia: Code(s): R78.81 - Bacteremia; B95.62 - Methicillin resistant Staphylococcus aureus infection as the cause of diseases classified elsewhere Status: Acute Assessment and Plan: MRSA bacteremia with infection, R foot source. repeat ng at 24 hours POD #2 REC Vanc through 12/27/19. Ok discharge, see me in office 2-3 weeks. Exam Narrative: Exam Narrative: afebrile Const: General: no acute distress Skin: General skin exam: normal color and no rashes or lesions noted Other: PICC in place LUE. Foot in complex dressing that I did not remove Objective Data Vital Signs Vital Signs: Vital Signs - 24 hr 11/16/19 16:00 11/16/19 17:54 11/16/19 19:37 Temperature 37.2 C 36.8 C Pulse Rate 94 93 96 Respiratory Rate 19 18 Blood Pressure 116/46 L 119/62 Pulse Oximetry 92 91 11/16/19 20:00 11/16/19 22:00 11/17/19 00:00 Temperature 37.1 C Pulse Rate 96 96 95 Respiratory Rate 18 18 Blood Pressure 128/67 Pulse Oximetry 91 93 11/17/19 02:00 11/17/19 04:00 11/17/19 05:34 Temperature 36.9 C Pulse Rate 98 93 94 Respiratory Rate 18 Blood Pressure 153/98 H Pulse Oximetry 91 11/17/19 08:00 Temperature 36.6 C Pulse Rate 92 Respiratory Rate 18 Blood Pressure 151/89 H Pulse Oximetry 91 Intake/Output Intake/Output: Intake & Output 11/14/19 11/15/19 11/16/19 11/17/19 23:59 23:59 23:59 23:59 Intake Total 4900 5470 4365 900 Output Total 1500 2700 1500 Balance 4900 3970 1665 -600 Meds/Results Medications: Active Medications Generic Name Dose Route Start Last Admin Trade Name Freq PRN Reason Stop Dose Admin Acetaminophen 650 mg 11/13/19 23:30 11/15/19 15:49 Tylenol Tablet PO 650 mg Q4H PRN Administration Mild Pain (1-3) or Fever Dextrose 12.5 gm 11/14/19 00:52 Dextrose 50% Syringe IV PUSH PRN PRN Hypoglycemia Protocol Docusate Sodium 100 mg 11/15/19 17:00 11/17/19 10:15 Colace Capsule PO 100 mg BID SARKIS Administration Enoxaparin Sodium 40 mg 11/14/19 09:00 11/17/19 10:16 Lovenox SUB-Q 40 mg DAILY SARKIS Administration Finasteride 5 mg 11/15/19 09:00 11/17/19 10:16 Proscar PO 5 mg DAILY SARKIS Administration Gabapentin 300 mg 11/14/19 17:00 11/17/19 10:15 Neurontin PO 300 mg BID SARKIS Administration Glucagon 1 mg 11/14/19 00:52 Glucagon For Inj IM PRN PRN Hypoglycemia Protocol Glucose 15 gm 11/14/19 00:52 Glutose 15 PO PRN PRN Hypoglycemia Protocol Dextrose 1,000 mls @ 100 mls/hr 11/14/19 00:52 Dextrose 5% 1,000 Ml IVPB PRN PRN Hypoglycemia Protocol Vancomycin HCl 2,000 mg in 500 mls @ 250 mls/hr 11/15/19 09:00 11/16/19 22:40 Vancomycin 2,000 Mg/D5w 500 Ml IVPB Infused Q12H SARKIS Infusion Insulin Aspart 2 - 5 units 11/15/19 17:00 11/17/19 10:16 Novolog SUB-Q 3 units TIDWM SARKIS Administration Protocol Insulin Aspart 16 units 11/16/19 08:43 11/17/19 10:17 Novolog SUB-Q 16 units TIDWM SARKIS Administration Insulin Glargine 25 units 11/16/19 09:00 11/17/19 10:17 Lantus SUB-Q 25 units QAM SARKIS Administration Insulin Glargine 35 units 11/16/19 21:00 11/16/19 20:37 Lantus SUB-Q 35 units HS SARKIS Administration Lisinopril 20 mg 11/16/19 09:00 11/17/19 10:15 Prinivil PO 20 mg QAM SARKIS Administration Magnesium Hydroxide 30 ml 11/15/19 14:20 Milk Of Magnesia PO BID PRN Constipation Melatonin 10 mg 11/15/19 05:47 11/16/19 20:36 Melatonin PO 10 mg HS SARKIS Administration Ondansetron HCl 4 mg 11/13/19 23:30 Zofran Inj IV PUSH Q4H PRN Nausea Rosuvastatin Calcium 5 mg 11/15/19 09:00 11/17/19 10:15 Crestor PO 5 mg DAILY SARKIS Administration Silver Nitrate 1 applic 11/16/19 09:00 11/17/19 10:18 Silvergel TOPICAL 1 applic DAILY SARKIS Administration Tamsulosi
--- NOTE | 2019-11-17 15:28 | PCCDE ---
f/up: pt is hoping for discharge today. spoke with Anali COURTNEY and called Dr Colin's office regarding resuming insulin pump. Informed Dr Colin of pt receiving BID Lantus but pt remains hyperglycemic with 296 BG this am; Dr. Colin advised pt could resume pump this evening and he should scheduled a pump adjustment visit [facility]. Spoke to pt and and informed of the above plus recommended 0200 BG check . Discussed portion control behavior modification for snacking. Encouraged pt to contact educator gera.
--- NOTE | 2019-11-28 10:57 | PC.NURSE ---
Blood cx are negative.
== END 2019-11-17 16:45 | disposition home health service (06) | DRG 854 ==
LOC: ANHED 21:38 → ANHIMU 23:57
PROVIDERS: Orthopaedic Surgery; Physician Assistant; Admitting Provider Family Medicine; Emergency Provider Emergency Medicine; PCP Family Medicine; Visit Provider Hospitalist
PROC: 0KBV0ZX Excision of Right Foot Muscle, Open Approach, Diagnostic (ICD-10-PCS; principal; 2019-11-15 13:30)
DX: A41.02 Sepsis due to Methicillin resistant Staphylococcus aureus (principal); N17.9 Acute kidney failure, unspecified; M86.171 Other acute osteomyelitis, right ankle and foot; E87.2 Acidosis; Z68.42 Body mass index [BMI] 45.0-49.9, adult; R65.20 Severe sepsis without septic shock; E11.69 Type 2 diabetes mellitus with other specified complication; E11.621 Type 2 diabetes mellitus with foot ulcer; L97.519 Non-pressure chronic ulcer of other part of right foot with unspecified severity; D72.829 Elevated white blood cell count, unspecified; E87.5 Hyperkalemia; D53.9 Nutritional anemia, unspecified; E11.42 Type 2 diabetes mellitus with diabetic polyneuropathy; I25.10 Atherosclerotic heart disease of native coronary artery without angina pectoris; G47.30 Sleep apnea, unspecified; M17.10 Unilateral primary osteoarthritis, unspecified knee; E66.01 Morbid (severe) obesity due to excess calories; E78.5 Hyperlipidemia, unspecified; I10 Essential (primary) hypertension; Z86.73 Personal history of transient ischemic attack (TIA), and cerebral infarction without residual deficits; Z95.5 Presence of coronary angioplasty implant and graft; Z87.891 Personal history of nicotine dependence; Z79.4 Long term (current) use of insulin
CPT/HCPCS: 29445; 36415; 36569; 71046; 73630; 76775; 80048; 80053; 80069; 80076; 80202; 83605; 83735; 85025; 85027; 85610; 85730; 86140; 87040; 87070; 87075; 87076; 87077; 87147; 87185; 87186; 87205; 93005; 96361; 96365; 96375; 97110; 97116; 97161; 97165; 97530; 99285; A9270; C1751; C8929; J1650; J1815; J2405; J2543; J2704; J3010; J3370; J7030; J7120; Q9957

== ENCOUNTER 2019-12-29 07:36 | Outpatient (RCR) | payer OTHER, SELFPAY ==
--- NOTE | 2019-10-10 08:49 | PM.PNORT ---
Progress Note: A&P Assessment and Plan (1) Diabetes mellitus with neurologic complication, with long-term current use of insulin: Qualifiers: Diabetes mellitus complication detail: with polyneuropathy Diabetes mellitus type: type 2 Qualified Code(s): E11.42 - Type 2 diabetes mellitus with diabetic polyneuropathy; Z79.4 - half-way (current) use of insulin Code(s): E11.49 - Type 2 diabetes mellitus with other diabetic neurological complication; Z79.4 - half-way (current) use of insulin Status: Acute Assessment and Plan: Diabetic foot education reviewed. Diabetic shoe wear and custom inserts evaluated, in good condition and well fitted. He does have a little bit of pressure on the lateral aspect of the left foot small toe. We are going to have flare out the left shoe lateral aspect. (2) Ulcer of foot due to diabetes: Qualifiers: Diabetes mellitus type: type 2 Diabetic foot ulcer location: toe Laterality: right Non-pressure ulcer stage: with muscle involvement without evidence of necrosis Qualified Code(s): E11.621 - Type 2 diabetes mellitus with foot ulcer; L97.515 - Non-pressure chronic ulcer of other part of right foot with muscle involvement without evidence of necrosis Code(s): E11.621 - Type 2 diabetes mellitus with foot ulcer; L97.509 - Non-pressure chronic ulcer of other part of unspecified foot with unspecified severity Status: Acute Assessment and Plan: Discussed nonoperative and operative treatment options with the patient. Risks and benefits of each as well as alternatives were reviewed. All of the patient's questions were answered. The risks of surgery reviewed including but not limited to: Neurovascular damage, wound complication, infection, blood clot, pulmonary embolus, stroke, myocardial infarction, and anesthetic risks up to and including . Continued pain and possible dysfunction were explained. Specific risks of the procedure including later recurrence of deformity. No guarantees were offered. If hardware used, discussed risk of failure/ breakage and possible need for removal. If complications occur, the patient understands the need for further treatment, possible further surgery. Patient verbalizes understanding and wishes to proceed. PLAN: Debride right foot diabetic ulcer. Patient has custom shoe wear. We have talked about surgical treatment for arthrodesis of the hallux metatarsophalangeal joint to reduce pressure on the plantar foot. Risks and benefits discussed in detail, reviewed healing time. Patient to consider. (3) Weakness generalized: Code(s): R53.1 - Weakness Status: Acute Assessment and Plan: Patient has been through physical therapy. Currently on home exercise regimen. Continue with use of cane. Reviewed tips to improve home to decrease fall risk. May consider return to physical therapy. Subjective Subjective Date/Time Seen: 10/10/19 08:[address] to the [facility] wound clinic for follow-up of right diabetic foot ulcer and left toenail infection. Patient reports drainage from the right foot in the interim. He is using his custom shoes and inserts. Denies fever, chills or systemic problems. He is putting a foam dressing on the right foot when he can remember. Denies pain, redness or proximal complaints. History of bilateral knee pain which is stable at the moment. He does complain of some weakness and loss of balance. He had 1 episode where he fell at home but was able to brace himself. Review of Systems Constitutional: Constitutional: Denies fever(s) Eyes: Eyes: Denies blurry vision ENT: Reports Normal hearing present Cardiovascular: Cardiovascular: Denies chest pain and Denies dyspnea Respiratory: Respiratory: Denies dyspnea and Denies wheezing Gastrointestinal: Gastrointestinal: Denies abdominal pain Genitourinary: Genitourinary: Denies urinary urgency Musculoskeletal: Mu
--- NOTE | 2019-10-10 09:03 | PM.PROC ---
Procedure Note - Detailed Date of procedure: 10/10/19 Pre-op diagnosis: total contact cast application right foot ulcer Right diabetic foot ulcer with exposed muscle Post-op diagnosis: same Procedure performed: Right foot excisional debridement down to muscle Description of procedure: Patient identified in holding. Informed consent given. Operative extremity marked. Time-out performed confirming the patient, site of the surgery and the plan. Right foot sterilize with alcohol prep solution. Fifteen blade knife used to sharply excise skin, subcutaneous tissue, muscle that was devitalized or nonviable right diabetic foot ulcer. Good viable healthy border left in place. Wound dimensions recorded in wound clinic. Sterile dressing placed. Patient tolerated without incident Anesthesia: none Surgeon: Darinel Dueñas MD Estimated blood loss (mL): 0 Drains: No Packing: No Pathology: none sent Complications: None Condition: stable Disposition: no change
--- NOTE | 2019-11-10 09:23 | PM.PNORT ---
Progress Note: A&P Assessment and Plan (1) Ulcer of foot due to diabetes: Qualifiers: Diabetic foot ulcer location: toe Diabetes mellitus type: type 2 Laterality: right Non-pressure ulcer stage: with muscle involvement without evidence of necrosis Qualified Code(s): E11.621 - Type 2 diabetes mellitus with foot ulcer; L97.515 - Non-pressure chronic ulcer of other part of right foot with muscle involvement without evidence of necrosis Code(s): E11.621 - Type 2 diabetes mellitus with foot ulcer; L97.509 - Non-pressure chronic ulcer of other part of unspecified foot with unspecified severity Status: Acute Assessment and Plan: Return of ulcer right plantar hallux. Discussed the motion occurring at the hallux and the need for stabilization. He is unable to proceed with surgery at this time due to needing cataract treatment as well as some other things going on. We have talked about treatment for the ulcer. Continue with silver gel, Karis and foam offloading. Continue fracture boot. Patient declined a total contact cast at this time. Follow up in 3 weeks for re-evaluation and to discuss surgery. Ulcer, callus and subcutaneous tissue/muscle excisional debridement today. Patient tolerated without incident (2) Diabetes mellitus with neurologic complication, with long-term current use of insulin: Qualifiers: Diabetes mellitus type: type 2 Diabetes mellitus complication detail: with polyneuropathy Qualified Code(s): E11.42 - Type 2 diabetes mellitus with diabetic polyneuropathy; Z79.4 - meterman (current) use of insulin Code(s): E11.49 - Type 2 diabetes mellitus with other diabetic neurological complication; Z79.4 - snf (current) use of insulin Status: Acute Subjective Subjective Date/Time Seen: 11/10/19 09:23 The patient called after being last seen in September. Stated that the ulcer on the plantar aspect right foot was increased in size. They were concerned. He was out of town, however, he now has gotten back into town presents for evaluation of his right foot. No fever or chills. No systemic complaints. They have noticed minimal drainage. Review of Systems Constitutional: Constitutional: Denies fever(s) Eyes: Eyes: Denies blurry vision ENT: Reports Normal hearing present Cardiovascular: Cardiovascular: Denies chest pain and Denies dyspnea Respiratory: Respiratory: Denies dyspnea and Denies wheezing Gastrointestinal: Gastrointestinal: Denies abdominal pain Genitourinary: Genitourinary: Denies urinary urgency Musculoskeletal: Musculoskeletal: Reports as per HPI and Denies numbness Integumentary/Breasts: Skin/Breast: Reports as per HPI, Reports non-healing lesions (right foot) and Denies erythema Neurologic: Reports Normal hearing present, Denies behavioral changes, Denies confusion, Denies numbness and Denies convulsions Psychiatric: Psychiatric: Denies behavioral changes, Denies confusion and Denies hallucinations Endocrine: Endocrine: Denies heat intolerance Hematologic/Lymphatic: Hematologic/Lymphatic: Denies easy bleeding Allergic/Immunologic: Allergic/Immunologic: Denies wheezing Exam Const: General: healthy appearing; No in distress or confusion Orientation/consciousness: patient oriented x3 and No confusion HENMT: Head: normal to inspection, normocephalic and atraumatic Eyes: Conjunctivae: conjunctivae normal Sclera: sclerae normal Resp: Effort & Inspection: normal respiratory effort and no audible wheezes Neuro: General: patient oriented x3 and No confusion Extrem: Right upper extremity: normal to inspection Left upper extremity: normal to inspection Right lower extremity: normal to inspection, normal capillary refill, ankle Details: normal to inspection and normal ROM (Dorsiflexion -10, planter flexion 50, inversion 15, eversion 5 ); no tenderness and no swelling and foot Details: tenderness (plantar heel ), vascular exam (2+ dorsalis ped
--- NOTE | 2019-11-10 09:27 | P.OP_ITS ---
Procedure Note - Detailed Date of procedure: 11/10/19 Pre-op diagnosis: total contact cast application right foot ulcer Right diabetic foot ulcer Post-op diagnosis: same Procedure performed: Incisional debridement of skin, subcutaneous tissue, muscle right diabetic foot ulcer Description of procedure: Patient identified in the preoperative holding. Informed consent given. Operative extremity marked. Positioned supine on operating room table. Time-out performed confirming the patient, site of the surgery and the plan. Right foot prepped with alcohol prep solution. Fifteen blade knife used to perform excisional debridement of the plantar hallux ulcer including excisional debridement of the skin, subcutaneous tissue and muscle. Devitalized tissue sharply removed. Good healthy tissue left in place. Blee ding points coagulated with silver nitrate. Sterile dressing applied. Anesthesia: none Surgeon: Darinel Dueñas MD Estimated blood loss (mL): 1 Drains: No Packing: Yes Pathology: none sent Complications: None Condition: stable Disposition: other (Home with fracture boot)
--- NOTE | 2019-11-20 09:20 | WPDWOUNDNOTE ---
Wound Care Note Date/Time: 11/20/19 09:20 POD 4 rt foot debridement. No interval complaints. D/C home from hospital 11/16. MRSA Assessment and Plan Assessment and plan (1) Infected pressure ulcer: Qualifiers: Pressure injury stage: stage 4 Qualified Code(s): L89.94 - Pressure ulcer of unspecified site, stage 4; L08.9 - Local infection of the skin and subcutaneous tissue, unspecified Code(s): L89.90 - Pressure ulcer of unspecified site, unspecified stage; L08.9 - Local infection of the skin and subcutaneous tissue, unspecified Status: Acute Assessment and Plan: Updated history, physical exam reviewed with the patient. Interval changes reviewed. Discussed the condition, nature, etiology and course of natural history with the patient. The patient's questions were answered. Conservative treatment ice, compression and elevation. Fit with TCC, continue NWB. IV Vanc F/U 1 week Exam Const: General: healthy appearing; No in distress or confusion Orientation/consciousness: patient oriented x3 and No confusion HENMT: Head: normal to inspection, normocephalic and atraumatic Eyes: Conjunctivae: conjunctivae normal Sclera: sclerae normal Resp: Effort & Inspection: normal respiratory effort and no audible wheezes Neuro: General: patient oriented x3 and No confusion Extrem: Right upper extremity: normal to inspection Left upper extremity: normal to inspection Right lower extremity: normal to inspection, normal capillary refill, ankle and foot; no edema Left lower extremity: ankle and foot Other: Plantar ulcer right foot 1st metatarsal head closed. No drainage noted. Erythema on the dorsum of the foot improved. No redness or swelling at the ankle/ leg, negative Homans. Sutures intact, can't probe thru incision Psych: Affect: normal affect Fracture/Casting/Strapping Pre Procedure Consent was obtained, Procedures/risks were explained, Questions were answered, Correct patient identified and Correct side and site confirmed Episode of Care Return Visit Casting Cast: Total Contact Leg Cast (Right) Modification and Status: Diabetic Application Exam of Affected Area: Color: Normal, Temp: Normal, Pulse: Normal, Blanching: Normal, Capillary Refill: Normal and Sensory Exam: Abnormal (neuropathic ) Swelling: Yes (mild ) and Tenderness: No (mild ) Skin Apperance: Intact Care: Alcohol Wipes Patient Tolerated Procedure Well: Yes Post Procedure Patient tolerated the procedure well?: Tolerated procedure well Comment: Follow up in 1 week.
--- NOTE | 2019-11-24 09:29 | WPDWOUNDNOTE ---
Wound Care Note Date/Time: 11/24/19 09:29 Follow-up postoperative visit [facility] wound clinic. Nine days status post right foot excision of osteo and debridement. Patient with no interim complaints. No fever or chills. Assessment and Plan Assessment and plan (1) Aftercare following surgery of the musculoskeletal system: Code(s): Z47.89 - Encounter for other orthopedic aftercare Status: Acute Assessment and Plan: Nine days status post debridement right foot. Patient in total contact cast for the past 4 days. No interim complaints. Cast changed today. Wound healing well. Dressing changed, endoform placed in the small open areas. Continue with limited weight-bearing. Follow up in 1 week for cast change. (2) Osteomyelitis: Qualifiers: Laterality: right Osteomyelitis location: foot Osteomyelitis type: unspecified type Qualified Code(s): M86.9 - Osteomyelitis, unspecified Code(s): M86.9 - Osteomyelitis, unspecified Status: Acute (3) MRSA bacteremia: Code(s): R78.81 - Bacteremia; B95.62 - Methicillin resistant Staphylococcus aureus infection as the cause of diseases classified elsewhere Status: Acute Assessment and Plan: Intravenous vancomycin controlled by Infectious Disease. Plan for 4 to 6 weeks. Second round of blood culture from inpatient negative to date. Exam Const: General: healthy appearing; No in distress or confusion Orientation/consciousness: patient oriented x3 and No confusion HENMT: Head: normal to inspection, normocephalic and atraumatic Eyes: Conjunctivae: conjunctivae normal Sclera: sclerae normal Resp: Effort & Inspection: normal respiratory effort and no audible wheezes Neuro: General: patient oriented x3 and No confusion Extrem: Right upper extremity: normal to inspection Left upper extremity: normal to inspection Right lower extremity: normal to inspection, normal capillary refill, ankle and foot; no edema Left lower extremity: ankle and foot Other: Right leg cast removed. Dressing changed. Plantar ulcer right foot 1st metatarsal head closed. No drainage noted. Erythema on the dorsum of the foot improved. No redness or swelling at the ankle/ leg, negative Homans. Sutures intact, can't probe thru incision. Loose callus and excess skin sharply debrided from the incision and surrounding area. Psych: Affect: normal affect Fracture/Casting/Strapping Pre Procedure Consent was obtained, Procedures/risks were explained, Questions were answered, Correct patient identified and Correct side and site confirmed Episode of Care Return Visit Casting Cast: Total Contact Leg Cast (Right) Modification and Status: Diabetic Application Exam of Affected Area: Color: Normal, Temp: Normal, Pulse: Normal, Blanching: Normal, Capillary Refill: Normal and Sensory Exam: Abnormal (neuropathic ) Swelling: Yes (mild ) and Tenderness: No (mild ) Skin Apperance: Intact Care: Alcohol Wipes Patient Tolerated Procedure Well: Yes Post Procedure Patient tolerated the procedure well?: Tolerated procedure well Comment: Follow up in 1 week.
--- NOTE | 2019-12-01 10:58 | PM.IMHP ---
H&P: HPI History of Present Illness Chief complaint: total contact cast application right foot ulcer Narrative: Sunil De La Cruz is a 64 year old male Presents to [facility] wound clinic for follow-up of right diabetic foot ulcer. Status post debridement of osteomyelitis November 15, 2019. Total contact cast in place. No interval complaints. Denies fever or chills. 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, with long-term current use of insulin High cholesterol HTN (hypertension) Left knee pain Sleep apnea TIA (transient ischemic attack) Ulcer of foot due to diabetes Vision abnormalities Weakness generalized Surgical History Surgical History H/O heart artery stent History of cardiac catheterization History of incision and drainage thigh abscess Status post left foot surgery Family History Family History Father Lung cancer Father Family history of lung cancer Other Diabetes mellitus Family history of cardiovascular disease Social History Social History Smoking packs per day: 2 Smoking cigarettes per day: 40.0 Years smoked: 20 Smoking pack-years: 40.00 Smoking status: Former smoker Second hand tobacco smoke exposure: No Smoking end date: 09/10/99 Alcohol intake: former Drinks per week: 1 Substance use: never Gender identity (if verbalized by the patient): Male Spiritual care concerns: No Agree to blood products: Yes Meds Home Medications and Allergies Home Medications Medication Instructions Recorded Confirmed Type clopidogrel 75 mg PO DAILY 06/23/19 11/14/19 History finasteride 5 mg PO DAILY 06/23/19 11/14/19 History lisinopril 40 mg PO DAILY 06/23/19 11/14/19 History metformin 500 mg PO BID 06/23/19 11/14/19 History rosuvastatin [Crestor] 5 mg PO DAILY 06/23/19 11/14/19 History tamsulosin 0.4 mg PO DAILY 06/23/19 11/14/19 History clopidogrel 75 mg tablet 75 mg PO DAILY #90 tablet 07/14/19 Rx finasteride 5 mg tablet 5 mg PO DAILY #90 tablet 07/14/19 Rx lisinopril 10 mg tablet 10 mg PO DAILY #90 tablet 07/14/19 Rx tamsulosin 0.4 mg capsule 0.4 mg PO DAILY #90 cap 07/14/19 Rx rosuvastatin 5 mg tablet 5 mg PO DAILY PRN #90 tablet 07/17/19 Rx Humulin R U-500 (Conc) Insulin See Rx Instructions .ROUTE .COMPLEX 11/13/19 11/14/19 History Huy (with collagen) 1 ea PO BID 11/14/19 11/14/19 History fenofibrate 54 mg PO HS 11/14/19 11/14/19 History acetaminophen [Mapap 650 mg PO Q4H PRN #30 tablet 11/17/19 Rx (acetaminophen)] vancomycin in 0.9 % sodium chl 2,000 mg IV Q12H 42 Days #03496 ml 11/17/19 Rx gabapentin 300 mg capsule 300 mg PO BID #180 cap 11/30/19 Rx Allergies Allergy/AdvReac Type Severity Reaction Status Date / Time sulfamethizole Allergy Unknown Skin Verified 11/23/19 11:27 Reaction Exam Const: General: healthy appearing; No in distress or confusion Orientation/consciousness: patient oriented x3 and No confusion HENMT: Head: normal to inspection, normocephalic and atraumatic Eyes: Conjunctivae: conjunctivae normal Sclera: sclerae normal Resp: Effort & Inspection: normal respiratory effort and no audible wheezes Neuro: General: patient oriented x3 and No confusion Extrem: Right upper extremity: normal to inspection Left upper extremity: normal to inspection Right lower extremity: normal to inspection, normal capillary refill, ankle and foot; no edema Left lower extremity: ankle and foot Other: Right leg cast removed. Dressing changed. Plantar ulcer right foot 1st metatarsal head With some central opening 1.5 by 1
--- NOTE | 2019-12-08 09:09 | PM.PNORT ---
Progress Note: A&P Assessment and Plan (1) Aftercare following surgery of the musculoskeletal system: Code(s): Z47.89 - Encounter for other orthopedic aftercare Status: Acute Assessment and Plan: Three weeks status post excision of osteo right foot. Open ulcer clean and dry with good surrounding viable tissue. Indicated for graft placement. Graft placed today with good results. New total contact cast applied. Follow up in 1 week for cast change. Continue with offloading. Continue diet and blood sugar control. (2) Osteomyelitis of toe of right foot: Code(s): M86.9 - Osteomyelitis, unspecified Status: Acute Assessment and Plan: Continue with IV antibiotics Subjective Subjective Date/Time Seen: 12/08/19 09:09 Patient presents for follow-up right diabetic foot ulcer with osteomyelitis. Excision of osteo on November 14. No interim complaints. Exam Const: General: healthy appearing; No in distress or confusion Orientation/consciousness: patient oriented x3 and No confusion HENMT: Head: normal to inspection, normocephalic and atraumatic Eyes: Conjunctivae: conjunctivae normal Sclera: sclerae normal Resp: Effort & Inspection: normal respiratory effort and no audible wheezes Neuro: General: patient oriented x3 and No confusion Extrem: Right upper extremity: normal to inspection Left upper extremity: normal to inspection Right lower extremity: normal to inspection, normal capillary refill, ankle and foot; no edema Left lower extremity: ankle and foot Other: Right leg cast removed. Dressing changed. Plantar ulcer right foot 1st metatarsal head With some central opening 2.0 by 1.5 cm. 1cm depth. No drainage noted. Erythema on the dorsum of the foot improved. No redness or swelling at the ankle/ leg, negative Homans. Sutures intact, can't probe thru incision. Loose callus and excess skin sharply debrided from the incision and surrounding area. Psych: Affect: normal affect Objective Data Meds/Results Medications: Active Medications Generic Name Dose Route Start Last Admin Trade Name Freq PRN Reason Stop Dose Admin Wound Care/Dressing Products 1 each 10/10/19 08:35 Mepilex 4x4 Foam Bandage TOPICAL 01/08/20 10:00 PRN PRN Wound Care Fracture/Casting/Strapping Pre Procedure Consent was obtained, Procedures/risks were explained, Questions were answered, Correct patient identified and Correct side and site confirmed Episode of Care Return Visit (Right foot) Application Exam of Affected Area: Color: Normal, Temp: Normal, Pulse: Normal, Blanching: Normal, Capillary Refill: Normal and Sensory Exam: Abnormal (neuropathic ) Swelling: Yes (mild ) and Tenderness: No (mild ) Skin Apperance: Intact Care: Alcohol Wipes Patient Tolerated Procedure Well: Yes Post Procedure Patient tolerated the procedure well?: Tolerated procedure well Debridement/Burn/Wound Pre Procedure Consent was obtained, Procedures/risks were explained, Questions were answered, Correct patient identified and Correct side and site confirmed Ulcer/Wound Debridement, skin, first 20 sq cm or less: Yes Right (Foot) Wound Location: big toe Dressing Applied sterile dressing Post Procedure Patient tolerated the procedure well?: Tolerated procedure well Comments: 15 blade knife used to debride skin and subcutaneous tissue of right foot diabetic foot ulcer. Good viable tissue left in place. Wound dimensions measured. Allograft skin replacement applied with marin. Sterile dressing placed.
--- NOTE | 2019-12-15 08:41 | P.PNOP_ITS ---
Progress Note: A&P Assessment and Plan (1) Aftercare following surgery of the musculoskeletal system: Code(s): Z47.89 - Encounter for other orthopedic aftercare Status: Acute Assessment and Plan: 4 weeks status post excision of osteo right foot. Skin graft adherent and viable. New total contact cast applied. Follow up in 1 week for cast change. Continue with offloading. Continue diet and blood sugar control. Continue IV vancomycin. (2) Osteomyelitis of toe of right foot: Code(s): M86.9 - Osteomyelitis, unspecified Status: Acute Assessment and Plan: Continue with IV antibiotics (3) Ulcer of foot due to diabetes: Qualifiers: Diabetic foot ulcer location: toe Diabetes mellitus type: type 2 Laterality: right Non-pressure ulcer stage: with muscle involvement without evidence of necrosis Qualified Code(s): E11.621 - Type 2 diabetes mellitus with foot ulcer; L97.515 - Non-pressure chronic ulcer of other part of right foot with muscle involvement without evidence of necrosis Code(s): E11.621 - Type 2 diabetes mellitus with foot ulcer; L97.509 - Non-pressure chronic ulcer of other part of unspecified foot with unspecified severity Status: Acute Subjective Subjective Date/Time Seen: 12/15/19 08:41 Follow-up [facility] wound clinic for right total contact cast and diabetic foot ulcer. Patient with PICC line and left arm with IV vancomycin. No interim problems. Patient denies fever or chills. Denies pain. Exam Const: General: healthy appearing; No in distress or confusion Orientation/consciousness: patient oriented x3 and No confusion HENMT: Head: normal to inspection, normocephalic and atraumatic Eyes: Conjunctivae: conjunctivae normal Sclera: sclerae normal Resp: Effort & Inspection: normal respiratory effort and no audible wheezes Neuro: General: patient oriented x3 and No confusion Extrem: Right upper extremity: normal to inspection Left upper extremity: normal to inspection Right lower extremity: normal to inspection, normal capillary refill, ankle and foot; no edema Left lower extremity: ankle and foot Other: Right leg cast removed. Dressing changed. Plantar ulcer right foot 1st metatarsal head with skin graft in place, marin in place. Good adherence noted. No drainage noted. Erythema on the dorsum of the foot improved. No redness or swelling at the ankle/ leg, negative Homans. Mild dependent erythema 2nd toe and hallux. Psych: Affect: normal affect Objective Data Meds/Results Medications: Active Medications Generic Name Dose Route Start Last Admin Trade Name Freq PRN Reason Stop Dose Admin Wound Care/Dressing Products 1 each 10/10/19 08:35 Mepilex 4x4 Foam Bandage TOPICAL 01/08/20 10:00 PRN PRN Wound Care Fracture/Casting/Strapping Pre Procedure Consent was obtained, Procedures/risks were explained, Questions were answered, Correct patient identified and Correct side and site confirmed Episode of Care Return Visit (Right foot) Casting Cast: Total Contact Leg Cast (right) Application Exam of Affected Area: Color: Normal, Temp: Normal, Pulse: Normal, Blanching: Normal, Capillary Refill: Normal and Sensory Exam: Abnormal (neuropathic ) Swelling: Yes (mild ) and Tenderness: No (mild ) Skin Apperance: Intact Care: Alcohol Wipes Patient Tolerated Procedure Well: Yes Post Procedure Patient tolerated the procedure well?: Tolerated procedure well
--- NOTE | 2019-12-22 08:25 | PM.PNORT ---
Progress Note: A&P Assessment and Plan (1) Aftercare following surgery of the musculoskeletal system: Code(s): Z47.89 - Encounter for other orthopedic aftercare Status: Acute Assessment and Plan: Five weeks status post debridement in 2 weeks status post skin graft. Silicone layer removed today. New total contact cast applied to protect diabetic foot ulcer. Return in 1 week cast removal and transition to fracture boot. Karis and endoform applied to the opening. (2) MRSA bacteremia: Code(s): R78.81 - Bacteremia; B95.62 - Methicillin resistant Staphylococcus aureus infection as the cause of diseases classified elsewhere Status: Acute Assessment and Plan: PICC line removed yesterday. Five week antibiotic course completed. (3) Ulcer of foot due to diabetes: Qualifiers: Diabetic foot ulcer location: toe Diabetes mellitus type: type 2 Laterality: right Non-pressure ulcer stage: with muscle involvement without evidence of necrosis Qualified Code(s): E11.621 - Type 2 diabetes mellitus with foot ulcer; L97.515 - Non-pressure chronic ulcer of other part of right foot with muscle involvement without evidence of necrosis Code(s): E11.621 - Type 2 diabetes mellitus with foot ulcer; L97.509 - Non-pressure chronic ulcer of other part of unspecified foot with unspecified severity Status: Acute Assessment and Plan: Much improved status post debridement and application graft. Discussed recommendation and indications for hallux metatarsophalangeal arthrodesis. Patient would need to be bacteria and disease free for a period of time. Discussed 2 to 3 weeks of rest after the cast treatment which ends in 1 week. Subjective Subjective Date/Time Seen: 12/22/19 08:25 Five weeks status post debridement osteomyelitis right foot. Two weeks status post skin graft. No interim complaints. Exam Const: General: healthy appearing; No in distress or confusion Orientation/consciousness: patient oriented x3 and No confusion HENMT: Head: normal to inspection, normocephalic and atraumatic Eyes: Conjunctivae: conjunctivae normal Sclera: sclerae normal Resp: Effort & Inspection: normal respiratory effort and no audible wheezes Neuro: General: patient oriented x3 and No confusion Extrem: Right upper extremity: normal to inspection Left upper extremity: normal to inspection Right lower extremity: normal to inspection, normal capillary refill, ankle and foot; no edema Left lower extremity: ankle and foot Other: Right leg cast removed. Dressing changed. Plantar ulcer right foot 1st metatarsal head with skin graft in place, marin in place. Good adherence noted. No drainage noted. Erythema on the dorsum of the foot improved. No redness or swelling at the ankle/ leg, negative Homans. Erythema 2nd toe and hallux improved. DFU 1.5 x 1 x 0.3 cm. [place] and silicone skin graft layer removed. One area at 7 o'clock with 3 mm depth. Psych: Affect: normal affect Objective Data Meds/Results Medications: Active Medications Generic Name Dose Route Start Last Admin Trade Name Freq PRN Reason Stop Dose Admin Wound Care/Dressing Products 1 each 10/10/19 08:35 Mepilex 4x4 Foam Bandage TOPICAL 01/08/20 10:00 PRN PRN Wound Care Fracture/Casting/Strapping Pre Procedure Consent was obtained, Procedures/risks were explained, Questions were answered, Correct patient identified and Correct side and site confirmed Episode of Care Return Visit (Right foot) Casting Cast: Total Contact Leg Cast (right) Application Exam of Affected Area: Color: Normal, Temp: Normal, Pulse: Normal, Blanching: Normal, Capillary Refill: Normal and Sensory Exam: Abnormal (neuropathic ) Swelling: Yes (mild ) and Tenderness: No (mild ) Skin Apperance: Intact Care: Alcohol Wipes Patient Tolerated Procedure Well: Yes Post Procedure Patient tolerated the procedure well?: Tolerated procedure well
--- NOTE | 2019-12-29 08:31 | P.PNWOUND_ITS ---
Wound Care Note Date/Time: 12/29/19 08:31 Patient seen and evaluated [facility] wound clinic for right diabetic foot ulcer infected with MRSA. Debridement 6 weeks ago. PICC line removed last week. No new complaints. Assessment and Plan Assessment and plan (1) Aftercare following surgery of the musculoskeletal system: Code(s): Z47.89 - Encounter for other orthopedic aftercare Status: Acute Assessment and Plan: 21 days status post graft right foot. 6 weeks s/p initial debridement. Patient in total contact cast for the past 7 days. No interim complaints. Cast changed today. ulcer with central opening 1.0 cm. Dressing changed, endoform and Karis placed in the small open area. Continue with limited weight-bearing. Follow up in 1 week for cast change. Possible transition to fracture boot. Patient has been off antibiotics for 8 days with no recurrence. Discussed hallux reconstruction once again (2) Osteomyelitis: Qualifiers: Laterality: right Osteomyelitis location: foot Osteomyelitis type: unspecified type Qualified Code(s): M86.9 - Osteomyelitis, unspecified Code(s): M86.9 - Osteomyelitis, unspecified Status: Acute (3) MRSA bacteremia: Code(s): R78.81 - Bacteremia; B95.62 - Methicillin resistant Staphylococcus aureus infection as the cause of diseases classified elsewhere Status: Acute Assessment and Plan: Intravenous vancomycin controlled by Infectious Disease. Completed 5 weeks with removal of PICC line. No interval fever, chills or signs of recurrence. Exam Const: General: healthy appearing; No in distress or confusion Orientation/consciousness: patient oriented x3 and No confusion HENMT: Head: normal to inspection, normocephalic and atraumatic Eyes: Conjunctivae: conjunctivae normal Sclera: sclerae normal Resp: Effort & Inspection: normal respiratory effort and no audible wheezes Neuro: General: patient oriented x3 and No confusion Extrem: Right upper extremity: normal to inspection Left upper extremity: normal to inspection Right lower extremity: normal to inspection, normal capillary refill, ankle and foot; no edema Left lower extremity: ankle and foot Other: Right leg cast removed. Dressing changed. Plantar ulcer right foot 1st metatarsal head with skin graft in place, marin in place. Good adherence noted. No drainage noted. Erythema on the dorsum of the foot improved. No redness or swelling at the ankle/ leg, negative Homans. Erythema 2nd toe and hallux improved. DFU 1.0 x 0.6 x 0.3 cm. Loose surrounding skin removed. One area at 7 o'clock with 3 mm depth. Psych: Affect: normal affect Fracture/Casting/Strapping Pre Procedure Consent was obtained, Procedures/risks were explained, Questions were answered, Correct patient identified and Correct side and site confirmed Episode of Care Return Visit (Right foot) Casting Cast: Total Contact Leg Cast (right) Modification and Status: Diabetic Application Exam of Affected Area: Color: Normal, Temp: Normal, Pulse: Normal, Blanching: Normal, Capillary Refill: Normal and Sensory Exam: Abnormal (neuropathic ) Swelling: Yes (mild ) and Tenderness: No (mild ) Skin Apperance: Intact Care: Alcohol Wipes Patient Tolerated Procedure Well: Yes Post Procedure Patient tolerated the procedure well?: Tolerated procedure well
== END 2020-01-08 23:59 | disposition home or self-care (01) ==
LOC: ANHWOC 07:36
PROVIDERS: PCP Family Medicine; Visit Provider Orthopaedic Surgery
DX: E11.621 Type 2 diabetes mellitus with foot ulcer (principal); L97.519 Non-pressure chronic ulcer of other part of right foot with unspecified severity
CPT/HCPCS: 11043; 15275; 29445; Q4105

== ENCOUNTER 2019-12-30 12:22 | Emergency (ER) | payer OTHER, SELFPAY ==
[2019-12-30 12:18] VITALS: PULSE 0
--- NOTE | 2019-12-30 13:05 | PC.NURSE ---
Direct Care Provider contacted at 1300. Direct Care Provider decided he does not need an autopsy. [facility] contacted at 1306 talked with Konrad. They decided that the patient was not a canidate.
--- NOTE | 2019-12-30 13:11 | PC.NURSE ---
Clot box and TPA opened during code blue with anticipation of giving TPA for possible PE. Code was ended prior to medication administration.
--- NOTE | 2019-12-30 14:38 | ED.CPR ---
HPI - CPR General Chief Complaint: Cardiac Arrest/CPR Stated Complaint: cardiac arrest Time Seen by Provider: 12/30/19 12:22 Source: family and EMS Mode of arrival: EMS Limitations: clinical condition History of Present Illness HPI narrative: This patient is a 64 yo male who presents from home in cardiac arrest. EMS states patient has been complaining of intermittent shortness of breath for 2 days. His daughter states patient had an episode of sob and chest pain last night so they called EMS. She states by the time EMS arrived last night he was starting to feel better. She states he was told his heart rate was low , but he declined to come to ER yesterday. She states he was feeling ok initially this morning but he began having trouble breathing again. IT was then witness , that patient stood up and became unresponsive and he fell back onto the bed. This happened approximately 20 minutes ago. On EMS arrival, patient PEA so ACLS protocol was started. Patient was intubated by EMS prior to arrival. He has capnography of 30. His daughter denies patient having cough, fever, URI symptoms. Bystander CPR performed: No AED applied by bystander/wheelchair van operator first responder: No Shock advised: No Downtime before ACLS arrival (mins): 4 Initial findings in the field: unresponsive, no respirations and PEA ROSC in the field: No Associated injuries: No Associated symptoms: shortness of breath Treatments prior to arrival: intubation and epinephrine mgs # (4) Related Data Home Medications Medication Instructions Recorded Confirmed clopidogrel 75 mg PO DAILY 06/23/19 11/14/19 finasteride 5 mg PO DAILY 06/23/19 11/14/19 lisinopril 40 mg PO DAILY 06/23/19 11/14/19 metformin 500 mg PO BID 06/23/19 11/14/19 rosuvastatin [Crestor] 5 mg PO DAILY 06/23/19 11/14/19 tamsulosin 0.4 mg PO DAILY 06/23/19 11/14/19 Humulin R U-500 (Conc) Insulin See Rx Instructions .ROUTE .COMPLEX 11/13/19 11/14/19 Huy (with collagen) 1 ea PO BID 11/14/19 11/14/19 fenofibrate 54 mg PO HS 11/14/19 11/14/19 Allergies Allergy/AdvReac Type Severity Reaction Status Date / Time sulfamethizole Allergy Unknown Skin Verified 11/23/19 11:27 Reaction Review of Systems Review of Systems: All systems reviewed & are unremarkable except as noted in HPI and below [facility] Social History Social History Smoking packs per day: 2 Smoking cigarettes per day: 40.0 Years smoked: 20 Smoking pack-years: 40.00 Smoking status: Former smoker Second hand tobacco smoke exposure: No Smoking end date: 09/10/99 Alcohol intake: former Drinks per week: 1 Substance use: never Gender identity (if verbalized by the patient): Male Spiritual care concerns: No Agree to blood products: Yes Exam Const: General: ill appearing acutely Nutritional Appearance: obese Other: unresponsive HENMT: Head: normocephalic and atraumatic Eyes: Pupils: Dilated pupils bilaterally and Fixed pupils bilaterally Resp: Auscultation: diminished lung sounds Other: patient intubated with Cardio: Other: pulseless GI: Inspection: distended Auscultation: Hypoactive bowel sounds present Skin: General skin exam: pallor Extrem: Other: right leg in surgical boot Course Course Emergency Course: Patient presented in cardiac arrest with 2 days of shortness of breath. PAtient was intubated prior to arrival. Patient was PEA on arrival. WE were unable to get return of circulation after an additional 20 minutes of CPR. Patient had at least 45 minute downtime. SEE code sheet. On last pulse check patient was asystole so time of [address] Lomeli of patient . Vital Signs Vital signs: Vital Signs Pulse Rate 0 L 12/30/19 12:18 Pulse Rate 0 L 12/30/19 12:18 Discharge Plan Discharge Clinical Impression: Cardiac arrest Patient Disposition: Condition:
== END 2019-12-30 15:02 | disposition expired ==
PROVIDERS: Emergency Provider General Practice; PCP Family Medicine
DX: I46.9 Cardiac arrest, cause unspecified (principal); Z87.891 Personal history of nicotine dependence
CPT/HCPCS: 92950; 99285; J0171; J7030